=== PATIENT | male | born 1940 | race Caucasian/White ===

== ENCOUNTER 2018-08-23 15:13 | Observation (INO) | payer OTHER ==
[2018-08-23] MEDS ORDERED: TETANUS & DIPHTHERIA TOX,ADULT 0.5 ML VIAL ONE (16:26)
--- NOTE | 2018-08-23 17:56 | RAD REPORT ---
EXAM DESCRIPTION: RAD - Elbow Left 3 View - 08/23/2018 5:17 pm CLINICAL HISTORY: Fall, elbow pain COMPARISON: None. FINDINGS: No fracture is identified and no elevated posterior fat pad. There is no dislocation or pe riosteal reaction noted. Degenerative changes are present at the elbow joint. Tendon calcifications are present at the medial epicondyle. IMPRESSION: Degenerative change without fracture confirmed at the left elbow joint. Repeat imaging in 7 days can be performed if the patient remains symptomatic for fracture.
--- NOTE | 2018-08-23 17:57 | RAD REPORT ---
EXAM DESCRIPTION: RAD - Shoulder Left 2 View - 08/23/2018 5:17 pm CLINICAL HISTORY: Fall, shoulder pain COMPARISON: None. TECHNIQUE: Internal and external rotation views of the left shoulder were obtained. FINDINGS: There is no fracture or dislocation. AC joint degenerative changes are present. No AC join t separation. Acromial humeral joint space is normal range. No pathologic bone process. No significan t soft tissue finding. IMPRESSION: Negative two-view left shoulder examination for fracture or acute finding.
--- NOTE | 2018-08-23 17:59 | RAD REPORT ---
EXAM DESCRIPTION: RAD - Ribs Left - 08/23/2018 5:17 pm CLINICAL HISTORY: Fall, rib pain COMPARISON: None. FINDINGS: No displaced rib fractures are present. Nondisplaced eighth and ninth rib fractures are id entifiable. There is questionable fracture of the seventh rib as well. No aggressive rib lesion. No u nderlying pneumothorax, effusion, infiltrate or pulmonary contusion. IMPRESSION: Nondisplaced fractures of the left eighth and ninth ribs with questionable seventh rib f racture.
--- NOTE | 2018-08-23 18:00 | RAD REPORT ---
EXAM DESCRIPTION: RAD - Chest Single View - 08/23/2018 5:17 pm CLINICAL HISTORY: Fall, chest pain COMPARISON: September 2010 TECHNIQUE: AP portable chest image was obtained 1710 hours . Exam is incorrectly labeled regarding r ight versus left side. FINDINGS: Lungs are mildly fibrotic similar to comparison. No acute lung parenchymal process. Heart and vasculature are normal. No measurable pleural effusion and no pneumothorax. No acute bony abnorma lity seen. No acute aortic findings suspected. IMPRESSION: No acute cardiopulmonary process.
[2018-08-23 19:09] LABS: Absolute Lymphocytes (CBC) 1.4 K/uL (0.7-4.9); Absolute Monocytes 1.2 K/uL (0.1-1.3); Absolute Neutrophil 7.9 K/uL (1.8-8.0); Basophils % 0.2 % (0-1.3); Eosinophils % 0.4 % (0-4.4); Hematocrit 40.7 % (39.6-49.0); MPV 8.9 fL (7.6-11.3); Monocytes % 11.1 % (3.3-12.3); RBC Red Blood Cell Count 4.36 M/uL (4.33-5.43)
[2018-08-23 19:44] LABS: ALT/SGPT 18 U/L (12-78); AST/SGOT 13 U/L (15-37); Albumin 3.5 g/dL (3.4-5.0); Alkaline Phosphatase 69 U/L (45-117); BUN Blood Urea Nitrogen 19 mg/dL (7-18); Bicarbonate 29 mmol/L (21-32); Bilirubin Direct 0.1 mg/dL (0-0.2); Bilirubin Total 0.3 mg/dL (0.2-1.0); Glucose Level 142 mg/dL (74-106); NT PRO-BNP 183 pg/mL (<450); Potassium 4.3 mmol/L (3.5-5.1); Protein, Total 6.5 g/dL (6.4-8.2); Sodium Level 141 mmol/L (136-145); Troponin (Emerg Dept Use Only) < 0.02 ng/mL (0.0-0.045)
[2018-08-23 19:50] LABS: Magnesium 1.2 mg/dL (1.8-2.4)
[2018-08-23] MEDS ORDERED: Magnesium Sulfate 2gm IVPB 2 G/50 ML BAG IV ONE (20:17)
--- NOTE | 2018-08-23 20:29 | ER ---
Nurse's Notes [facility] Name: Demario Johnston Jr Age: 77 yrs Sex: Male : 1940 Arrival Date: 08/23/2018 Time: 15:13 Bed 19 Private MD: Suraj Waldron E Diagnosis: Multiple fractures of ribs, left side;Syncope and collapse Presentation: 08/23 15:44 Presenting complaint: Patient states: I was walking this morning on sidewalk, around 10 sg or 1030 am, reports a dog came out from between two houses, lost my balance and feel from standing, skin tear noted to back of left hand, left elbow, pt reports pain in left forearm and left elbow, left ribs and left shoulder, denies LOC, denies hitting head, believes his tetanus to be out of date. Care prior to arrival: None. Mechanism of Injury: Fall from standing position. Trauma event details: Injury occurred in the [facility], Injury occurred: at home. Injury occurred: August 23, 2018 Injury occurred at: 10:00. 15:44 Acuity: JADA 4 sg 15:44 Method Of Arrival: Ambulatory sg 16:30 Transition of care: patient was not received from another setting of care. Onset of em symptoms was August 23, 2018. Risk Assessment: Do you want to hurt yourself or someone else? Patient reports no desire to harm self or others. Initial Sepsis Screen: Does the patient meet any 2 criteria? No. Patient's initial sepsis screen is negative. Does the patient have a suspected source of infection? No. Patient's initial sepsis screen is negative. Trauma Activation: Not Applicable Physician: ED Physician; Name: ; Notified At: ; Arrived At: Physician: General Surgeon; Name: ; Notified At: ; Arrived At: Physician: Radiology; Name: ; Notified At: ; Arrived At: Physician: Respiratory; Name: ; Notified At: ; Arrived At: Physician: Lab; Name: ; Notified At: ; Arrived At: Historical: - Allergies: 15:47 Sulfa (Sulfonamide Antibiotics); sg - PMHx: 15:47 Diabetes - NIDDM; sg - PSHx: 15:47 Hernia repair; Appendectomy; sg - Immunization history: Last tetanus immunization: > 10 years ago. - Social history:: Smoking status: Patient/guardian denies using tobacco. - Ebola Screening: : Patient negative for fever greater than or equal to 101.5 degrees Fahrenheit, and additional compatible Ebola Virus Disease symptoms Patient denies exposure to infectious person Patient denies travel to an Ebola-affected area in the 21 days before illness onset No symptoms or risks identified at this time. Screenin:30 Abuse screen: Denies threats or abuse. Nutritional screening: No deficits noted. em Tuberculosis screening: No symptoms or risk factors identified. Fall Risk None identified. Primary Survey: 15:44 NO uncontrolled hemorrhage observed. A: The patient is alert. Airway: patent, No sg supplemental oxygen in use on arrival. Oral cavity: clear, Trachea midline. Breathing/Chest: Respiratory pattern: regular, Respiratory effort: spontaneous, unlabored, Breath sounds: clear, Chest inspection: symmetrical rise and fall of the chest. Circulation: Heart tones present. Pulses: palpable right radial artery, right posterior tibial artery, left radial artery and left posterior tibial artery. Skin color: pink, Skin temperature: warm, dry, unable to assess the brachial pulses of the left arm due to pt reports discomfort. Disability Alert. Exposure/Environment: There is no evidence of uncontrolled external bleeding. A warming method has been applied: A warm blanket has been provided to the patient. 16:00 Reassessment Airway Airway Breathing/Chest Respiratory pattern Regular Respiratory sg effort Spontaneous Unlabored Breath sounds Clear Chest inspection Symmetrical Circulation Heart tones Present Pulses Palpable Color [place] Temperature Warm Disability Alert. 17:00 Reassessment Airway Airway Patent Breathing/Chest Respiratory pattern Regular hb Respiratory effort Spontaneous Chest inspection Symmetrical Circulation Color [place] Temperature Warm Dry Disability Alert. 18:00 Reassessment Airway Airway Patent Breathing/Chest Respiratory pattern Regular hb Respiratory effort Spontaneous Unlabored Chest inspection Symmetrical Circulation Color [place] Temperature Warm Dry Disability Alert. 19:00 Reassessment Airway Airway Patent Breathing/Chest Respiratory pattern Regular hb Respiratory effort Spontaneous Unlabored Chest inspection Symmetrical Circulation Color [place] Temperature Warm Dry Disability Alert. Secondary Survey: 15:44 HEENT: No deficits noted. Gastrointestinal: Abdomen is soft, non-distended, obese, sg Bowel sounds present in all quadrants. Palpation No deficit noted. : No signs and/or symptoms were reported regarding the genitourinary system. Musculoskeletal: Circulation, motion, and sensation intact. Range of motion: intact in all extremities, Swelling absent Reports pain in left lateral anterior chest, left hand and left arm. Injury Description: Skin tears sustained to dorsum of left hand and palmar aspect of left forearm. Assessment: 16:30 General: Appears in no apparent distress. comfortable, Behavior is calm, cooperative. em Pain: Complains of pain in anterior aspect of left shoulder, left elbow and left hand, left side of ribs Pain currently is 7 out of 10 on a pain scale. Pain began 1000 today. Neuro: Level of Consciousness is awake, alert, obeys commands, Oriented to person, place, time, situation. Cardiovascular: Capillary refill < 3 seconds Patient's skin is warm and dry. Respiratory: Airway is patent Respiratory effort is even, unlabored, Respiratory pattern is regular, symmetrical. GI: Abdomen is flat. Derm: Skin has skin tears on on top of the left hand and left elbow. Musculoskeletal: Range of motion: intact in left shoulder and left elbow. 16:45 Reassessment: I agree with previous assessment. 17:30 Reassessment: Patient appears in no apparent distress at this time. Patient and/or em family updated on plan of care and expected duration. Pain level reassessed. Patient is alert, oriented x 3, equal unlabored respirations, skin warm/dry/pink. 17:48 Reassessment: radiology staff reports patient became dizzy, diaphoretic and became pale em while standing and doing x-rays, reports they were manipulating patients arms when it occurred, pt was assisted back into the stretcher and reports feeling better, VS rechecked when patient returned to room, reports feeling better, VSS, provider notified. 18:54 Reassessment: Patient appears in no apparent distress at this time. Patient and/or em family updated on plan of care and expected duration. Pain level reassessed. Patient is alert, oriented x 3, equal unlabored respirations, skin warm/dry/pink. Patient states feeling better. Patient states symptoms have improved. 19:00 General: Appears in no apparent distress. comfortable, Behavior is calm, cooperative, rr5 appropriate for age. 19:00 Pain: Complains of pain in left lateral anterior chest Pain does not radiate. Pain rr5 currently is 0 out of 10 on a pain scale. Quality of pain is described as aching, Pain began gradually, Is intermittent. Neuro: Level of Consciousness is awake, alert, obeys commands, Oriented to person, place, time, situation. Cardiovascular: Capillary refill < 3 seconds Patient's skin is warm and dry. Respiratory: Airway is patent Respiratory effort is even, unlabored, Respiratory pattern is regular, symmetrical. GI: Abdomen is flat. : No signs and/or symptoms were reported regarding the genitourinary system. EENT: No signs and/or symptoms were reported regarding the EENT system. Derm: Wound noted left hand and dorsal aspect of left forearm. Musculoskeletal: Capillary refill < 3 seconds. 19:30 Reassessment: Patient appears in no apparent distress at this time. No changes from rr5 previously documented assessment. Patient is alert, oriented x 3, equal unlabored respirations, skin warm/dry/pink. 20:30 Reassessment: Patient appears in no apparent distress at this time. Patient is alert, rr5 oriented x 3, equal unlabored respirations, skin warm/dry/pink. awaiting for the admission. Patient denies pain at this time. 21:20 Reassessment: Patient appears in no apparent distress at this time. Patient is alert, rr5 oriented x 3, equal unlabored respirations, skin warm/dry/pink. no complaints made awaiting for admissionorders Patient states symptoms have improved. 22:25 Reassessment: Patient appears in no apparent distress at this time. Patient and/or rr5 family updated on plan of care and expected duration. Pain level reassessed. Patient is alert, oriented x 3, equal unlabored respirations, skin warm/dry/pink. complaint of left elbow pain. ED provider informed with order made and carried out. Patient states feeling better. Patient states symptoms have improved. 22:48 Reassessment: Patient appears in no apparent distress at this time. Patient is alert, rr5 oriented x 3, equal unlabored respirations, skin warm/dry/pink. transfer to Room 407 Patient states feeling better. Patient states symptoms have improved. Vital Signs: 15:47 BP 130 / 77; Pulse 67; Resp 19; Temp 97.7; Pulse Ox 98% on R/A; Weight 99.79 kg; Height sg 5 ft. 11 in. (180.34 cm); Pain 7/10; 16:30 BP 117 / 77; Pulse 89; Resp 16; Pulse Ox 97% on R/A; em 17:30 BP 108 / 67; Pulse 81; Resp 16; Pulse Ox 99% on R/A; em 18:30 BP 128 / 65; Pulse 81; Resp 16; Pulse Ox 98% on R/A; em 19:00 BP 124 / 69; Pulse 98; Resp 17; Temp 98; Pulse Ox 99% ; rr5 20:00 BP 118 / 65; Pulse 90; Resp 16; Pulse Ox 99% ; rr5 21:00 BP 134 / 64; Pulse 91; Resp 17; Pulse Ox 98% ; rr5 21:30 BP 135 / 66; Pulse 91; Resp 17; Pulse Ox 99% ; rr5 22:30 BP 120 / 63; Pulse 89; Resp 16; Temp 98; Pulse Ox 99% ; rr5 15:47 Body Mass Index 30.68 (99.79 kg, 180.34 cm) sg Greg Coma Score: 15:47 Eye Response: spontaneous(4). Verbal Response: oriented(5). Motor Response: obeys sg commands(6). Total: 15. Trauma Score (Adult): 15:47 Eye Response: spontaneous(1); Verbal Response: oriented(1); Motor Response: obeys sg commands(2); Systolic BP: > 89 mm Hg(4); Respiratory Rate: 10 to 29 per min(4); [place] Score: 15; Trauma Score: 12 16:30 Eye Response: spontaneous(1); Verbal Response: oriented(1); Motor Response: obeys hb commands(2); Systolic BP: > 89 mm Hg(4); Respiratory Rate: 10 to 29 per min(4); Greg Score: 15; Trauma Score: 12 17:30 Eye Response: spontaneous(1); Verbal Response: oriented(1); Motor Response: obeys hb commands(2); Systolic BP: > 89 mm Hg(4); Respiratory Rate: 10 to 29 per min(4); Greg Score: 15; Trauma Score: 12 18:30 Eye Response: spontaneous(1); Verbal Response: oriented(1); Motor Response: obeys hb commands(2); Systolic BP: > 89 mm Hg(4); Respiratory Rate: 10 to 29 per min(4); Greg Score: 15; Trauma Score: 12 ED Course: 15:13 Patient arrived in ED. as 15:14 Suraj Waldron MD is Private Physician. as 15:44 [facility] 15:45 Donny Albarran MD is Attending Physician. jmm 15:47 Triage completed. sg 15:51 Robel Da Silva LVN is Primary Nurse. em 16:20 Wound care: to skin tear located on left elbow and left hand was cleaned with em Hibiclens, dressed with Neosporin, 4X4s, Kerlix, Patient tolerated well. 16:30 Patient has correct armband on for positive identification. Placed in gown. Bed in low em position. Call light in reach. Side rails up X2. Adult w/ patient. Pulse ox on. NIBP on. 16:30 Arm band placed on. em 17:15 Shoulder Left (2 View) XRAY In Process Unspecified. EDMS 17:15 Elbow Left 3 View XRAY In Process Unspecified. EDMS 17:15 Ribs Left XRAY In Process Unspecified. EDMS 17:15 Chest Single View XRAY In Process Unspecified. EDMS 18:41 EKG done, by ED staff, reviewed by Franc BETH. em 18:50 Initial lab(s) drawn, by la, sent to lab. Inserted saline lock: 20 gauge in right em forearm, using aseptic technique. Blood collected. 19:00 Patient maintains SpO2 saturation greater than 95% on room air. rr5 19:00 Thermoregulation: warm blanket given to patient. rr5 19:49 Notified Nurse Practitioner and/or Physician Complaint Analyst of a critical lab result(s), mg fc of 1.2. 20:28 Caroline Li MD is Hospitalizing Provider. [facility] 22:34 No provider procedures requiring assistance completed. Patient admitted, IV remains in rr5 place. intact, No redness/swelling at site. Administered Medications: 16:32 Drug: Tetanus-Diphtheria Toxoid Adult 0.5 ml {[employer]: [employer]. Exp: em 08/16/2020. Lot #: [id number]. } Route: IM; Site: right deltoid; 18:28 Follow up: Response: No adverse reaction em 20:15 Drug: Magnesium Sulfate 2 grams Route: IVPB; Infused Over: 2 hrs; Site: right forearm; rr5 22:15 Follow up: Response: No adverse reaction; IV Status: Completed infusion; IV Intake: [id number] 22:28 Drug: Zofran 4 mg Route: IVP; Site: right forearm; rr5 22:49 Follow up: Response: No adverse reaction rr5 22:30 Drug: morphine 4 mg Route: IVP; Site: right forearm; rr5 22:50 Follow up: Response: No adverse reaction rr5 Intake: 15:47 PO: 0ml; Total: 0ml. sg 22:15 IV: 50ml; Total: 50ml. rr5 Outcome: 20:28 Decision to Hospitalize by Provider. [facility] 22:00 Patient's length of stay in the Emergency Department was greater than 2 hours. awaiting rr5 for inpatient ordersPatient's length of stay extended due to 22:34 Admitted to Tele accompanied by raciel, room 407, with chart, Report called to zahra rr5 22:34 Condition: stable 22:34 Instructed on the need for admit. 22:51 Patient left the ED. rr5 Signatures: Dispatcher [employer] Cale Gates, RN RN sg Franc Cruz PA PA jmm Chretien, Felicia, RN RN Robel Da Silva, MANAGER EPIC MANAGER EPIC em Va Lujan as Tiara Braga RN RN Bill Kraus, RN RN rr5 Corrections: (The following items were deleted from the chart) 19:27 16:30 Pain: Complains of pain in anterior aspect of left shoulder, left elbow and left em hand Pain currently is 7 out of 10 on a pain scale. Pain began 1000 today em
--- NOTE | 2018-08-23 20:29 | EDPHYS ---
Physician Documentation [facility] Name: Demario Johnston Jr Age: 77 yrs Sex: Male : 1940 Arrival Date: 08/23/2018 Time: 15:13 Bed 19 Private MD: Suraj Waldron E ED Physician Donny Albarran HPI: 08/23 16:16 This 77 yrs old Male presents to ER via Ambulatory with complaints of Fall jmm Injury. 16:16 Details of fall: The patient fell from an upright position. Onset: The symptoms/episode jmm began/occurred acutely, 4 hour(s) ago. Associated injuries: The patient sustained shoulder, elbow, chest. This is a 77 year old male with a history of DM, that presents to the ED with left sided rib pain pain, left elbow and left shoulder pain which occurred after a fall while walking. Patient states he tripped when attempting to step on an uneven street. Patient denies head injury, . Historical: - Allergies: 15:47 Sulfa (Sulfonamide Antibiotics); sg - PMHx: 15:47 Diabetes - NIDDM; sg - PSHx: 15:47 Hernia repair; Appendectomy; sg - Immunization history: Last tetanus immunization: > 10 years ago. - Social history:: Smoking status: Patient/guardian denies using tobacco. - Ebola Screening: : Patient negative for fever greater than or equal to 101.5 degrees Fahrenheit, and additional compatible Ebola Virus Disease symptoms Patient denies exposure to infectious person Patient denies travel to an Ebola-affected area in the 21 days before illness onset No symptoms or risks identified at this time. ROS: 16:16 Constitutional: Negative for fever, chills, and weight loss, Cardiovascular: Negative jmm for chest pain, palpitations, and edema, Respiratory: Negative for shortness of breath, cough, wheezing, and pleuritic chest pain. 16:16 MS/extremity: Positive for injury or acute deformity, abrasion, pain. 16:16 Skin: Positive for avulsion. 16:16 All other systems are negative. Exam: 16:16 Head/Face: atraumatic. Eyes: EOMI, no conjunctival erythema appreciated ENT: Moist jmm Mucus Membranes Neck: Trachea midline, Supple Chest/axilla: Normal chest wall appearance and motion. Cardiovascular: Regular rate and rhythm. No edema appreciated Respiratory: Normal respirations, no respiratory distress appreciated Abdomen/GI: Non distended, soft 16:16 Constitutional: The patient appears in no acute distress, alert, awake. 16:16 Chest/axilla: left anterolateral rib pain on palpation, no step offs appreciated. 16:16 Respiratory: the patient does not display signs of respiratory distress, Respirations: normal, Breath sounds: are clear throughout. 16:16 Musculoskeletal/extremity: bony tenderness noted to the left olecranon, left anterior shoulder, FROM is appreciated, to the wrist , elbow, and shoulder joint, full radial pulse, compartments are soft. NVI. 16:16 Skin: skin tear noted to the left wrist. 16:16 Neuro: Orientation: is normal, Mentation: is normal, Memory: is normal. 16:16 Psych: Behavior/mood is pleasant, cooperative. Vital Signs: 15:47 BP 130 / 77; Pulse 67; Resp 19; Temp 97.7; Pulse Ox 98% on R/A; Weight 99.79 kg; Height sg 5 ft. 11 in. (180.34 cm); Pain 7/10; 16:30 BP 117 / 77; Pulse 89; Resp 16; Pulse Ox 97% on R/A; em 17:30 BP 108 / 67; Pulse 81; Resp 16; Pulse Ox 99% on R/A; em 18:30 BP 128 / 65; Pulse 81; Resp 16; Pulse Ox 98% on R/A; em 19:00 BP 124 / 69; Pulse 98; Resp 17; Temp 98; Pulse Ox 99% ; rr5 20:00 BP 118 / 65; Pulse 90; Resp 16; Pulse Ox 99% ; rr5 21:00 BP 134 / 64; Pulse 91; Resp 17; Pulse Ox 98% ; rr5 21:30 BP 135 / 66; Pulse 91; Resp 17; Pulse Ox 99% ; rr5 22:30 BP 120 / 63; Pulse 89; Resp 16; Temp 98; Pulse Ox 99% ; rr5 15:47 Body Mass Index 30.68 (99.79 kg, 180.34 cm) sg Branch Coma Score: 15:47 Eye Response: spontaneous(4). Verbal Response: oriented(5). Motor Response: obeys sg commands(6). Total: 15. Trauma Score (Adult): 15:47 Eye Response: spontaneous(1); Verbal Response: oriented(1); Motor Response: obeys sg commands(2); Systolic BP: > 89 mm Hg(4); Respiratory Rate: 10 to 29 per min(4); Greg Score: 15; Trauma Score: 12 16:30 Eye Response: spontaneous(1); Verbal Response: oriented(1); Motor Response: obeys hb commands(2); Systolic BP: > 89 mm Hg(4); Respiratory Rate: 10 to 29 per min(4); Greg Score: 15; Trauma Score: 12 17:30 Eye Response: spontaneous(1); Verbal Response: oriented(1); Motor Response: obeys hb commands(2); Systolic BP: > 89 mm Hg(4); Respiratory Rate: 10 to 29 per min(4); Greg Score: 15; Trauma Score: 12 18:30 Eye Response: spontaneous(1); Verbal Response: oriented(1); Motor Response: obeys hb commands(2); Systolic BP: > 89 mm Hg(4); Respiratory Rate: 10 to 29 per min(4); Greg Score: 15; Trauma Score: 12 MDM: 16:07 Patient medically screened. [facility] 20:27 Data reviewed: vital signs, nurses notes. Counseling: I had a detailed discussion with [facility] the patient and/or guardian regarding: the historical points, exam findings, and any diagnostic results supporting the discharge/admit diagnosis, lab results, radiology results, the need for further work-up and treatment in the hospital. ED course: I discussed the patient with Dr. Schneider whom accepted admission. . 08/23 18:15 Order name: Basic Metabolic Panel; Complete Time: 19:51 [facility] 08/23 18:15 Order name: CBC with Diff; Complete Time: 19:29 [facility] 08/23 18:15 Order name: LFT's; Complete Time: 19:51 [facility] 08/23 18:15 Order name: Magnesium; Complete Time: :51 [facility] 08/23 18:15 Order name: NT PRO-BNP; Complete Time: 19:51 [facility] 08/23 18:15 Order name: PT-INR; Complete Time: 19:29 [facility] 08/23 16:12 Order name: Shoulder Left (2 View) XRAY; Complete Time: 18:11 [facility] 08/23 16:12 Order name: Elbow Left 3 View XRAY; Complete Time: 18:11 [facility] 08/23 16:12 Order name: Ribs Left XRAY; Complete Time: 18:11 [facility] 08/23 16:12 Order name: Chest Single View XRAY; Complete Time: 18:11 [facility] 08/23 18:15 Order name: Troponin (emerg Dept Use Only); Complete Time: 19:51 [facility] 08/23 18:15 Order name: EKG; Complete Time: 18:16 [facility] 08/23 18:15 Order name: Cardiac monitoring; Complete Time: 18:28 [facility] 08/23 18:15 Order name: EKG - Nurse/Tech; Complete Time: 18:28 [facility] 08/23 18:15 Order name: IV Saline Lock; Complete Time: 18:28 [facility] 08/23 18:15 Order name: Labs collected and sent; Complete Time: 18:28 [facility] 08/23 18:15 Order name: O2 Per Protocol; Complete Time: 18:28 [facility] 08/23 18:15 Order name: O2 Sat Monitoring; Complete Time: 18:28 [facility] Administered Medications: 16:32 Drug: Tetanus-Diphtheria Toxoid Adult 0.5 ml {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 Exp: em 08/16/2020. Lot #: [id number]. } Route: IM; Site: right deltoid; 18:28 Follow up: Response: No adverse reaction em 20:15 Drug: Magnesium Sulfate 2 grams Route: IVPB; Infused Over: 2 hrs; Site: right forearm; rr5 22:15 Follow up: Response: No adverse reaction; IV Status: Completed infusion; IV Intake: [id number] 22:28 Drug: Zofran 4 mg Route: IVP; Site: right forearm; rr5 22:49 Follow up: Response: No adverse reaction rr5 22:30 Drug: morphine 4 mg Route: IVP; Site: right forearm; rr5 22:50 Follow up: Response: No adverse reaction rr5 Disposition: 08/24 07:08 Co-signature as Attending Physician, Donny Albarran MD. rn Disposition: 08/23/18 20:28 Hospitalization ordered by Caroline Li for Observation. Preliminary diagnosis are Multiple fractures of ribs, left side, Syncope and collapse. - Bed requested for Telemetry/MedSurg (observation). - Status is Observation. rr5 - Condition is Stable. - Problem is new. - Symptoms have improved. UTI on Admission? No Signatures: Dispatcher [employer] EDShweta Grider RN RN Cale Smith RN RN sg Mickail, Joel, PA PA jmm Munoz, Edgar, HARPSICHORD MAKER HARPSICHORD MAKER em Donny Albarran MD MD rn Roque, Raymond, RN RN rr5 Corrections: (The following items were deleted from the chart) 08/23 20:55 20:28 Hospitalization Ordered by Caroline Li MD for Observation. Preliminary diagnosis is Multiple fractures of ribs, left side; Syncope and collapse. Bed requested for Telemetry/MedSurg (observation). Status is Observation. Condition is Stable. Problem is new. Symptoms have improved. UTI on Admission? No. [facility] 22:51 20:55 08/23/2018 20:28 Hospitalization Ordered by Caroline Li MD for Observation. rr5 Preliminary diagnosis is Multiple fractures of ribs, left side; Syncope and collapse. Bed requested for Telemetry/MedSurg (observation). Status is Observation. Condition is Stable. Problem is new. Symptoms have improved. UTI on Admission? No. kl
--- NOTE | 2018-08-23 22:14 | P.HP ---
Certification for Inpatient Patient admitted to: Observation With expected LOS: <2 Midnights Practitioner: I am a practitioner with admitting privileges, knowledge of patient current condition, hospital course, and medical plan of care. Services: Services provided to patient in accordance with Admission requirements found in Title 42 Section 412.3 of the Code of Federal Regulations Patient History Date of Service: 08/23/18 Reason for admission: multiple rib fractures History of Present Illness: Mr Johnston is a 77 years old male with history of diabetes mellitus II, who went for his usual waling today, when suddenly saw a dog running to him, loss his balance, and fell to the ground. Subsequently, he start having severe left chest wall and left arm pain. The patient denied any dizziness or palpitations prior the fall. Once he was in the hospital, the patient become dizzy after he stand up from the chair to have a CXR. He had nausea and become diaphoretic. The episode resolved quickly. CXR was remarkable for left 7th, 8th and possible 9th rib fracture. Allergies Sulfa (Sulfonamide Antibiotics) Allergy (Verified 11/23/14 07:57) Rash Home medications list reviewed: Yes Home Medications: Glimepiride [Amaryl] 4 mg PO DAILY 11/23/14 Metformin HCl [Glucophage] 1,000 mg PO TID 11/23/14 Ramipril [Altace] 5 mg PO DAILY 11/23/14 - Past Medical/Surgical History -: Diabetes mellitus II -: hernia repair -: appendectomy - Family History Family History: Reviewed- Non-Contributory - Social History Smoking Status: Former smoker Alcohol use: Yes CD- Drugs: No Place of Residence: Home Review of Systems 10-point ROS is otherwise unremarkable Physical Examination - Physical Exam General: Alert, In no apparent distress HEENT: Atraumatic, PERRLA, Mucous membr. moist/pink, EOMI, Sclerae nonicteric Neck: Supple, 2+ carotid pulse no bruit, No LAD, Without JVD or thyroid abnormality Respiratory: Clear to auscultation bilaterally, Normal air movement Cardiovascular: Regular rate/rhythm, Normal S1 S2 Gastrointestinal: Normal bowel sounds, No tenderness Musculoskeletal: Tenderness (left chest wall and left arm to movement or palpation.) Integumentary: No rashes Neurological: Normal gait, Normal speech, Normal strength at 5/5 x4 extr, Normal tone, Normal affect Lymphatics: No axilla or inguinal lymphadenopathy - Studies Laboratory Data (last 24 hrs) 08/23/18 18:50: PT 11.8, INR 1.00 08/23/18 18:50: WBC 10.4, Hgb 13.8, Hct 40.7, Plt Count 167 08/23/18 18:50: Sodium 141, Potassium 4.3, BUN 19 H, Creatinine 1.05, Glucose 142 H, Magnesium 1.2 L*, Total Bilirubin 0.3, AST 13 L, ALT 18, Alkaline Phosphatase 69 Assessment and Plan - Problems (Diagnosis) (1) Ribs, multiple fractures Current Visit: Yes Status: Acute Qualifiers: Encounter type: initial encounter Fracture type: closed Laterality: left Qualified Code(s): S22.42XA - Multiple fractures of ribs, left side, initial encounter for closed fracture (2) Diabetes mellitus Current Visit: Yes Status: Acute Qualifiers: Diabetes mellitus type: type 2 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 The near syncopal episode seem to be secondary to a vaso-vagal reaction. Will check for orthostatic hypotension. Consult physical therapy. - Advance Directives Does patient have a Living Will: No Does patient have a Durable POA for Healthcare: No - Code Status/Comfort Care Code Status Assessed: Yes Code Status: Full Code
[2018-08-23] MEDS ORDERED: ONDANSETRON 4 MG/2 ML VIAL ONE (22:35)
[2018-08-23] MEDS ORDERED: MORPHINE 4 MG/ML SYR ONE (22:35)
[2018-08-23] MEDS ORDERED: TRAMADOL HCL 50 MG TAB PO PRN (23:13)
[2018-08-23] MEDS ORDERED: GLUCAGON 1 MG/VIAL IM PRN (23:13)
[2018-08-23] MEDS ORDERED: KETOROLAC 30 MG/ML INJ IV PRN (23:13)
[2018-08-23] MEDS ORDERED: D50W 25 GM/50 ML SYRINGE IV PRN (23:13)
[2018-08-23] MEDS ORDERED: ONDANSETRON 4 MG/2 ML VIAL IV PRN (23:13)
[2018-08-23] MEDS ORDERED: ACETAMINOPHEN 500 MG TAB PO PRN (23:13)
[2018-08-23 23:14] VITALS: BMI 21.8
[2018-08-23] MEDS: NA CHLORIDE 0.9% 1,000 ML IV SCH (23:49)
[2018-08-24] MEDS ORDERED: MAGNESIUM SULFATE 1 gm IVPB 1 GM/100 ML BAG IV ONE (03:24)
[2018-08-24 06:54] LABS: Absolute Lymphocytes (CBC) 1.2 K/uL (0.7-4.9); Absolute Neutrophil 6.9 K/uL (1.8-8.0); Basophils % 0.2 % (0-1.3); Eosinophils % 0.2 % (0-4.4); Hematocrit 40.5 % (39.6-49.0); Lymphocytes % 13.5 % (15.3-44.8); Monocytes % 10.8 % (3.3-12.3); RBC Red Blood Cell Count 4.35 M/uL (4.33-5.43)
[2018-08-24 07:05] LABS: Urine Appearance CLEAR; Urine Bilirubin NEGATIVE (NEG); Urine Blood NEGATIVE (NEG); Urine Color YELLOW; Urine Glucose 1+ (NEG); Urine Protein NEGATIVE (NEG); Urine Specific Gravity 1.015 (1.005-1.030); Urine Urobilinogen 0.2 mg/dL (0.2-1.0); Urine pH 5.5 (5.0-7.0)
--- NOTE | 2018-08-24 07:06 | EKG ---
Test Date: 2018-08-23 Test Time: 18:41:31 Asparagus Buncher: MURRAY MEASUREMENT RESULTS: Intervals: Rate: 88 NE: 174 QRSD: 74 QT: 368 QTc: 445 Flora: P: 53 NE: 174 QRS: 8 T: 52 INTERPRETIVE STATEMENTS: Sinus rhythm with occasional premature ventricular complexes Otherwise normal ECG Compared to ECG 05/28/2006 08:21:28 Ventricular premature complex(es) now present Electronically Signed On 08-24-18 07:04:40 SAFETY AIDE by Gigi Medina
[2018-08-24 07:10] LABS: Potassium 4.6 mmol/L (3.5-5.1)
[2018-08-24] MEDS ORDERED: INSULIN -REGULAR HUMAN 50 UNIT/0.5 ML ML SQ SCH (07:30)
[2018-08-24 08:15] LABS: Urine Microscopic Reflex NO UMIC
[2018-08-24 08:17] VITALS: O2SAT 97
[2018-08-24] MEDS: NA CHLORIDE 0.9% 1,000 ML IV SCH (08:19)
[2018-08-24] MEDS ORDERED: ENOXAPARIN 40 MG/0.4 ML SQ SCH (09:00)
[2018-08-24] MEDS ORDERED: RAMIPRIL 5 MG CAP PO SCH (09:00)
--- NOTE | 2018-08-24 10:37 | P.DS ---
Admission Date: 08/23/18 Discharge Date: 08/24/18 Primary Care Provider: Dr. Waldron Disposition: ROUTINE DISCHARGE Discharge Condition: GOOD Reason for Admission: multiple rib fractures Consultations: none Procedures: Xray elbows: COMPARISON: None. FINDINGS: No fracture is identified and no elevated posterior fat pad. There is no dislocation or periosteal reaction noted. Degenerative changes are present at the elbow joint. Tendon calcifications are present at the medial epicondyle. IMPRESSION: Degenerative change without fracture confirmed at the left elbow joint. Repeat imaging in 7 days can be performed if the patient remains symptomatic for fracture. Xray ribs: COMPARISON: None. FINDINGS: No displaced rib fractures are present. Nondisplaced eighth and ninth rib fractures are identifiable. There is questionable fracture of the seventh rib as well. No aggressive rib lesion. No underlying pneumothorax, effusion, infiltrate or pulmonary contusion. IMPRESSION: Nondisplaced fractures of the left eighth and ninth ribs with questionable seventh rib fracture. Xray shoulder: COMPARISON: None. TECHNIQUE: Internal and external rotation views of the left shoulder were obtained. FINDINGS: There is no fracture or dislocation. AC joint degenerative changes are present. No AC joint separation. Acromial humeral joint space is normal range. No pathologic bone process. No significant soft tissue finding. IMPRESSION: Negative two-view left shoulder examination for fracture or acute finding. CXR: COMPARISON: September 2010 TECHNIQUE: AP portable chest image was obtained 1710 hours . Exam is incorrectly labeled regarding right versus left side. FINDINGS: Lungs are mildly fibrotic similar to comparison. No acute lung parenchymal process. Heart and vasculature are normal. No measurable pleural effusion and no pneumothorax. No acute bony abnormality seen. No acute aortic findings suspected. IMPRESSION: No acute cardiopulmonary process. Medical problem list: Fall leading to nondisplaced fractures of the left 7th, 8th and 9th Hypertension Diabetes mellitus type 2 Brief History of Present Illness: 69-year-old male presented to the emergency room after he lost his balance. He fell to the ground on the left side. This was after he saw all dog running to him. Patient denied any headaches, dizziness, chest pain or shortness of breath. Patient was brought in to the emergency room and found to have nondisplaced fractures of the left 7th, 8th and 9th rib. Patient was admitted for pain control. Hospital Course: Patient presented with a fall after a dog was running towards him. He denied any chest pain, shortness of breath or dizziness. Patient found to have left nondisplaced rib fractures to the 7th, 8th and 9th rib. Patient was admitted for pain control. Patient did well in his stay. Patient provided fall precautions and instructions. At discharge patient will follow up with his PCP within 1 week. Patient will be provided tramadol 50 mg 1 pill 3 times a day as needed for pain along with ibuprofen 400 mg 1 pill twice daily as needed for pain. Patient may follow up with his PCP. Patient may ask for physical therapy as an outpatient to further address. Patient has hypertension. Patient will continue with his medication of Altace 5 mg daily. Recommend to maintain blood pressures less than 150/80. Further adjustment can be done by his PCP. Patient has diabetes mellitus type 2. Patient will continue with his medication of Amaryl 4 mg daily and metformin 1000 mg 1 pill twice daily. Recommend to maintain blood sugars less 140 fasting and less than 200 after meals. Further adjustment can be done by his PCP. Vital Signs/Physical Exam: Temp Pulse Resp BP Pulse Ox 97.3 F 93 H 18 135/71 97 08/24/18 08:00 08/24/18 08:07 08/24/18 08:00 08/24/18 08:07 08/24/18 08:00 General: Alert, In no apparent distress, Oriented x3, Cooperative HEENT: Atraumatic Neck: Supple Respiratory: Clear to auscultation bilaterally, Normal air movement Cardiovascular: Normal pulses, Regular rate/rhythm Gastrointestinal: Normal bowel sounds, Soft and benign, Non-distended, No masses , No rebound, No guarding Musculoskeletal: Other (Mild pain to the left chest wall.) Neurological: Normal speech, Normal strength at 5/5 x4 extr, Normal tone, Normal affect Laboratory Data at Discharge: WBC 9.2 K/uL (4.3-10.9) 08/24/18 06:07 Hgb 13.7 g/dL (13.6-17.9) 08/24/18 06:07 Hct 40.5 % (39.6-49.0) 08/24/18 06:07 Plt Count 158 K/uL (152-406) 08/24/18 06:07 PT 11.8 SECONDS (9.5-12.5) 08/23/18 18:50 INR 1.00 08/23/18 18:50 Sodium 139 mmol/L (136-145) 08/24/18 06:07 Potassium 4.6 mmol/L (3.5-5.1) 08/24/18 06:07 BUN 19 mg/dL (7-18) H 08/24/18 06:07 Creatinine 1.12 mg/dL (0.55-1.3) 08/24/18 06:07 Glucose 249 mg/dL (74-106) H 08/24/18 06:07 Magnesium 1.6 mg/dL (1.8-2.4) L 08/24/18 01:52 Total Bilirubin 0.3 mg/dL (0.2-1.0) 08/23/18 18:50 AST 13 U/L (15-37) L 08/23/18 18:50 ALT 18 U/L (12-78) 08/23/18 18:50 Alkaline Phosphatase 69 U/L (45-117) 08/23/18 18:50 Triglycerides 122 mg/dL (<150) 08/24/18 06:07 Cholesterol 117 mg/dL (<200) 08/24/18 06:07 HDL Cholesterol 39 mg/dL (40-60) L 08/24/18 06:07 Cholesterol/HDL Ratio 3.00 08/24/18 06:07 Home Medications: Glimepiride [Amaryl] 5 mg PO DAILY 11/23/14 Metformin HCl [Glucophage] 1,000 mg PO BID 11/23/14 Ramipril [Altace*] 5 mg PO DAILY 11/23/14 Ibuprofen 400 mg PO BID PRN #15 tablet 08/24/18 traMADol HCL [Ultram*] 50 mg PO TID PRN #15 tab 08/24/18 New Medications: Ibuprofen 400 mg PO BID PRN #15 tablet PRN Reason: Pain traMADol HCL [Ultram*] 50 mg PO TID PRN #15 tab PRN Reason: Pain Patient Discharge Instructions: 1. Patient may follow up with his PCP in 1 week to follow up this hospitalization. 2. Patient presented with a fall after a dog was running towards him. He denied any chest pain, shortness of breath or dizziness. Patient found to have left nondisplaced rib fractures to the 7th, 8th and 9th rib. Patient was admitted for pain control. Patient did well in his stay. Patient provided fall precautions and instructions. At discharge patient will follow up with his PCP within 1 week. Patient will be provided tramadol 50 mg 1 pill 3 times a day as needed for pain along with ibuprofen 400 mg 1 pill twice daily as needed for pain. Patient may follow up with his PCP. Patient may ask for physical therapy as an outpatient to further address. 3. Patient has hypertension. Patient will continue with his medication of Altace 5 mg daily. Recommend to maintain blood pressures less than 150/80. Further adjustment can be done by his PCP. 4. Patient has diabetes mellitus type 2. Patient will continue with his medication of Amaryl 4 mg daily and metformin 1000 mg 1 pill twice daily. Recommend to maintain blood sugars less 140 fasting and less than 200 after meals. Further adjustment can be done by his PCP. Diet: ADA Activity: Fall precautions Time spent managing pt's care (in minutes): 55
[2018-08-24 12:58] VITALS: BP 115/56; TEMP 99.1
== END 2018-08-24 12:05 | disposition home or self-care (01) ==
LOC: ER 15:13 → ERHOLD 20:28 → 4TH 22:39
PROVIDERS: ADMIT Internal Medicine; ATTEND Internal Medicine
DX: S22.42XA Multiple fractures of ribs, left side, initial encounter for closed fracture (principal); I10 Essential (primary) hypertension; E11.9 Type 2 diabetes mellitus without complications; E83.42 Hypomagnesemia; R55 Syncope and collapse; W01.0XXA Fall on same level from slipping, tripping and stumbling without subsequent striking against object, initial encounter; Y92.009 Unspecified place in unspecified non-institutional (private) residence as the place of occurrence of the external cause; Z88.2 Allergy status to sulfonamides; Z87.891 Personal history of nicotine dependence; Z23 Encounter for immunization
CPT/HCPCS: 36415; 71045; 71100; 73030; 73080; 80048 ×2; 80061; 80076; 81003; 82962 ×3; 83735 ×2; 83880; 84484; 85025 ×2; 85610; 90714; 93005; 96365; 96366; 96375; 97162; 99285; G0378 ×2; J1650; J2405; J3475 ×2; J7030 ×2

== ENCOUNTER 2020-06-02 08:15 | Day surgery (SDC) | payer OTHER ==
[2020-06-02 08:40] VITALS: TEMP 96.9
[2020-06-02 08:47] LABS: Absolute Lymphocytes (CBC) 1.2 K/uL (0.7-4.9); Basophils % 0.4 % (0-1.3); Hematocrit 40.4 % (39.6-49.0); Lymphocytes % 18.5 % (15.3-44.8); MPV 8.4 fL (7.6-11.3); RBC Red Blood Cell Count 4.36 M/uL (4.33-5.43)
--- NOTE | 2020-06-02 09:01 | RAD REPORT ---
EXAM DESCRIPTION: Christopher Cordova (2 Views)06/02/2020 8:45 am CLINICAL HISTORY: Preop for finger surgery COMPARISON: 2019 FINDINGS: Lungs appear mildly hyperaerated. The lungs appear clear of acute infiltrate. The heart is normal size IMPRESSION: No acute abnormalities displayed
[2020-06-02] MEDS ORDERED: NA CHLORIDE 0.9% 1,000 ML ONE (09:54)
[2020-06-02] MEDS: CEFAZOLIN/SWI 1gm 1 GM/10 ML SYR ONE ×2 (13:18→14:05)
[2020-06-02] MEDS ORDERED: FENTANYL CITR 100 MCG/2 ML ONE (13:27)
[2020-06-02] MEDS ORDERED: propofoL 200 MG/20 ML VIAL IV ONE (13:27)
[2020-06-02] MEDS ORDERED: LIDOCAINE 2% MPF 5 ML VIAL ONE (13:29)
[2020-06-02] MEDS ORDERED: KETOROLAC 30 MG/ML INJ ONE (13:29)
[2020-06-02] MEDS ORDERED: BUPIVACAINE 0.5% PF 10 ML VIAL ONE (13:50)
[2020-06-02] MEDS ORDERED: CODEINE 30MG/APAP 300MG TAB ONE (15:11)
[2020-06-02 15:26] VITALS: BP 128/64; O2SAT 98
--- NOTE | 2020-06-06 11:10 | OP ---
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 Procedure Performed: Debridement of skin tissue, bone, flap advancement closure. Anesthesia: Digital block. Description Of Procedure: After satisfactory digital block, the patient's left hand was prepped with Betadine scrub and paint. Dry sterile drapes were applied in the usual manner. 6.5 gloves were use d as a digital tourniquet over left middle finger. Hand was placed on the Roto Lock table. Scalpel was used to debride skin and subcutaneous tissue and the nail plate was removed with a 15 blade and the bone was cut with angled. This was corrected, then filed with a file. Wound jet lavag e, irrigated with 1 L of dilute Betadine solution. Then, the flap was undermined, advanced and close d with 4-0 Prolene simple sutures. Dressed with Xeroform, 2 inch Karely. The patient tolerated proce dure well, returned to Recovery. BONNIE/DUARTE Voice ID: [id number] Report ID: [id number]
== END 2020-06-02 15:29 | disposition home or self-care (01) ==
LOC: OR 08:15
PROVIDERS: ATTEND Specialist
PROC: 0X6R0Z3 Detachment at Left Middle Finger, Low, Open Approach (ICD-10-PCS; principal; 2020-06-02 13:00)
DX: S68.613A Complete traumatic transphalangeal amputation of left middle finger, initial encounter (principal); Z20.828 Contact with and (suspected) exposure to other viral communicable diseases
CPT/HCPCS: 93005; 85025; 36415; 82947; 88304; 88311; 71046; 26952; U0002; J2704; J0690; J7030; J3010

== ENCOUNTER 2021-09-13 06:06 | Observation (INO) | payer OTHER ==
[2021-09-13] MEDS ORDERED: MORPHINE 2 MG/ML SYR ONE (06:57)
[2021-09-13] MEDS ORDERED: ONDANSETRON 4 MG/2 ML VIAL ONE (06:57)
[2021-09-13] MEDS ORDERED: FAMOTIDINE 20 MG/2 ML VIAL IV ONE (06:57)
[2021-09-13 07:10] LABS: Absolute Lymphocytes (CBC) 1.4 K/uL (0.7-4.9); Lymphocytes % 13.1 % (15.3-44.8); MPV 8.5 fL (7.6-11.3); RBC Red Blood Cell Count 4.61 M/uL (4.33-5.43)
[2021-09-13 07:31] LABS: Protime INR 0.96
[2021-09-13 08:39] LABS: Bilirubin Total 0.5 mg/dL (0.2-1.0); Potassium 4.1 mmol/L (3.5-5.1)
[2021-09-13 08:40] LABS: Albumin 3.5 g/dL (3.4-5.0); Bilirubin Direct 0.1 mg/dL (0-0.2); Protein, Total 6.9 g/dL (6.4-8.2); Troponin High Sensitivity 7.4 pg/mL (<58.9)
[2021-09-13] MEDS ORDERED: Magnesium Sulfate 2gm IVPB 2 G/50 ML BAG IV ONE (09:02)
--- NOTE | 2021-09-13 09:24 | RAD REPORT ---
EXAM DESCRIPTION: CT - Angio Aorta For Dissection - 09/13/2021 9:03 am CLINICAL HISTORY: . Chest and abd pain COMPARISON: 2016 TECHNIQUE: Computed tomography angiography of the chest, abdomen pelvis were obtained. 100 cc Isovue 370 was administered intravenously. Coronal and sagittal reconstruction were performed. MIP 3D reconstruction was performed All CT scans are performed using dose optimization technique as appropriate and may include automated exposure control or mA/KV adjustment according to patient size. FINDINGS: An aortic dissection is not seen. An aortic aneurysm is not displayed. The celiac, SMA and JOEY are patent . Mild atherosclerotic disease A lung consolidation is not present. A pericardial effusion is not seen. A pleural effusion is not no ariane. A 6 millimeter left lower lobe nodule unchanged likely benign. COPD The liver,spleen, pancreas, adrenalsand kidneys demonstrate no significant abnormality. No evidence of diverticulitis. A small hiatal hernia. Postsurgical changes left inguinal hernia repai r. Probably small current left inguinal hernia. Small right inguinal hernia. Prostate gland moderatel y to markedly enlarged IMPRESSION: Negative for an aortic dissection.
--- NOTE | 2021-09-13 09:36 | RAD REPORT ---
EXAM DESCRIPTION: Christopher Single View09/13/2021 7:02 am CLINICAL HISTORY: Abdominal pain COMPARISON: 2019 FINDINGS: The lungs appear clear of acute infiltrate. The heart is normal size IMPRESSION: No acute abnormalities displayed
--- NOTE | 2021-09-13 10:12 | ER ---
Nurse's Notes [facility] Name: Demario Johnston Jr Age: 80 yrs Sex: Male : 1940 Arrival Date: 09/13/2021 Time: 06:12 Bed 15 Private MD: Diagnosis: Chest pain, unspecified;Epigastric pain;Hypomagnesemia Presentation: 09/13 06:26 Chief complaint: Patient states: "I am having this pain right there" Patient points to tw5 center of the chest. further states "It has been bothering him all night.". Coronavirus screen: Vaccine status: Patient reports receiving the 2nd dose of the covid vaccine. [employer]. Ebola Screen: Patient negative for fever greater than or equal to 101.5 degrees Fahrenheit, and additional compatible Ebola Virus Disease symptoms Patient denies exposure to infectious person. Patient denies travel to an Ebola-affected area in the 21 days before illness onset. Initial Sepsis Screen: Does the patient meet any 2 criteria? No. Patient's initial sepsis screen is negative. Does the patient have a suspected source of infection? No. Patient's initial sepsis screen is negative. Risk Assessment: Do you want to hurt yourself or someone else? Patient reports no desire to harm self or others. Onset of symptoms was September 12, 2021 at 19:00. 06:26 Method Of Arrival: Ambulatory tw5 06:26 Acuity: JADA 3 tw5 Triage Assessment: 06:28 General: Appears in no apparent distress. Behavior is calm, cooperative, appropriate tw5 for age. Pain: Complains of pain in xiphoid area Pain currently is 7 out of 10 on a pain scale. GI: Reports nausea. Historical: - Allergies: 06:28 Sulfa (Sulfonamide Antibiotics); tw5 - Home Meds: 06:28 metformin 1,000 mg Oral tab 1 tab 2 times per day [Active]; tw5 - PMHx: :28 Diabetes - NIDDM; tw5 - Immunization history:: Flu vaccine is up to date. - Social history:: Smoking status: Patient denies any tobacco usage or history of. Screenin:44 Abuse screen: Denies threats or abuse. Denies injuries from another. Nutritional sarbjit screening: No deficits noted. Tuberculosis screening: No symptoms or risk factors identified. Fall Risk None identified. Assessment: 06:45 General: Appears in no apparent distress. comfortable, Behavior is calm, cooperative. sarbjit Pain: Complains of pain in abdomen. Neuro: No deficits noted. Respiratory: No deficits noted. 07:45 Reassessment: Patient appears in no apparent distress at this time. No changes from ll1 previously documented assessment. Patient and/or family updated on plan of care and expected duration. Pain level reassessed. Patient is alert, oriented x 3, equal unlabored respirations, skin warm/dry/pink. 08:45 Reassessment: No changes from previously documented assessment. Patient and/or family ll1 updated on plan of care and expected duration. Pain level reassessed. Patient is alert, oriented x 3, equal unlabored respirations, skin warm/dry/pink. 09:45 Reassessment: No changes from previously documented assessment. Patient and/or family ll1 updated on plan of care and expected duration. Pain level reassessed. Patient is alert, oriented x 3, equal unlabored respirations, skin warm/dry/pink. 10:45 Reassessment: No changes from previously documented assessment. Patient and/or family ll1 updated on plan of care and expected duration. Pain level reassessed. Patient is alert, oriented x 3, equal unlabored respirations, skin warm/dry/pink. 11:45 Reassessment: No changes from previously documented assessment. Patient and/or family ll1 updated on plan of care and expected duration. Pain level reassessed. Patient is alert, oriented x 3, equal unlabored respirations, skin warm/dry/pink. 12:45 Reassessment: No changes from previously documented assessment. Patient and/or family ll1 updated on plan of care and expected duration. Pain level reassessed. Patient is alert, oriented x 3, equal unlabored respirations, skin warm/dry/pink. 13:45 Reassessment: No changes from previously documented assessment. Patient and/or family ll1 updated on plan of care and expected duration. Pain level reassessed. Patient is alert, oriented x 3, equal unlabored respirations, skin warm/dry/pink. 14:45 Reassessment: No changes from previously documented assessment. Patient and/or family ll1 updated on plan of care and expected duration. Pain level reassessed. Patient is alert, oriented x 3, equal unlabored respirations, skin warm/dry/pink. 15:38 Reassessment: No changes from previously documented assessment. Patient and/or family ll1 updated on plan of care and expected duration. Pain level reassessed. Patient is alert, oriented x 3, equal unlabored respirations, skin warm/dry/pink. to 2nd via wheelchair. Vital Signs: 06:26 BP 137 / 84; Pulse 108; Resp 18; Temp 98.1(TE); Pulse Ox 96% on R/A; Weight 83.91 kg; tw5 Height 6 ft. 2 in. (187.96 cm); Pain 7/10; 06:46 BP 124 / 77; Pulse 101; Resp 14; Temp 98.5; Pulse Ox 100% on R/A; Pain 3/10; sarbjit 07:43 BP 134 / 71; Pulse 88; ll1 08:29 BP 132 / 73; Pulse 76; ll1 10:24 BP 122 / 68; Pulse 91; Resp 14; Pulse Ox 98% ; ll1 14:47 BP 127 / 62; Pulse 95; Resp 15; Temp 97.6; Pulse Ox 96% on R/A; Pain 0/10; ll1 15:37 BP 119 / 70; Pulse 95; Resp 15; Pulse Ox 95% on R/A; Pain 0/10; ll1 06:26 Body Mass Index 23.75 (83.91 kg, 187.96 cm) tw5 ED Course: 06:12 Patient arrived in ED. wm 06:28 Triage completed. tw5 06:28 Arm band placed on right wrist. tw5 06:30 [facility] cp 06:30 Cosme Douglas MD is Attending Physician. cp 06:32 She Taylor, RN is Primary Nurse. sarbjit 06:44 Patient has correct armband on for positive identification. Placed in gown. Bed in low sarbjit position. Side rails up X 1. Adult w/ patient. interlocker maintainer on. Pulse ox on. NIBP on. 06:44 No provider procedures requiring assistance completed. sarbjit 06:51 Inserted saline lock: 20 gauge in right forearm, using aseptic technique. sarbjit 06:52 Lipase Sent. sarbjit 06:52 XRAY Chest (1 view) Sent. sarbjit 06:52 Basic Metabolic Panel Sent. sarbjit 06:52 CBC with Diff Sent. sarbjit 06:52 LFT's Sent. sarbjit 06:52 Magnesium Sent. sarbjit 06:52 NT PRO-BNP Sent. sarbjit 06:52 PT-INR Sent. sarbjit 06:52 Troponin HS Sent. sarbjit 07:02 XRAY Chest (1 view) In Process Unspecified. EDMS 08:09 Chu Wright, RN is Primary Nurse. ll1 09:02 CT Aorta for Dissection In Process Unspecified. EDMS 10:11 Bill Albarran MD is Hospitalizing Provider. cp 15:04 Patient admitted, IV remains in place. ll1 Administered Medications: 06:55 Drug: Pepcid (famotidine) 20 mg Route: IVP; Site: right forearm; sarbjit 10:06 Follow up: Response: No adverse reaction ll1 07:00 Drug: Zofran (Ondansetron) 4 mg Route: IVP; Site: right forearm; sarbjit 10:06 Follow up: Response: No adverse reaction ll1 07:00 Drug: morphine 2 mg {Note: 1st dose.} Route: IVP; Site: right forearm; sarbjit 10:06 Follow up: Response: No adverse reaction ll1 09:09 Drug: Magnesium Sulfate 2 grams Route: IVPB; Infused Over: 2 hrs; Site: right forearm; ll1 10:06 Follow up: Response: No adverse reaction; IV Status: Completed infusion; IV Intake: [id number] Intake: 10:06 IV: 50ml; Total: 50ml. 1 Outcome: 06:44 Condition: stable sarbjit 10:11 Decision to Hospitalize by Provider. cp 15:03 Admitted to Med/surg accompanied by tech, via wheelchair, room 219, with chart, Report ll1 called to Sander Cotton 15:03 Instructed on the need for admit. 15:38 Patient left the ED. ll1 Signatures: Dispatcher [employer] EDIA Cosme Gomez PA PA cp Chu Wright, RN RN ll1 Randi Rainey Tiffany tw5 She Taylor RN RN sarbjit
--- NOTE | 2021-09-13 10:12 | EDPHYS ---
Physician Documentation [facility] Name: Demario Johnston Jr Age: 80 yrs Sex: Male : 1940 Arrival Date: 09/13/2021 Time: 06:12 Bed 15 Private MD: ED Physician Cosme Douglas HPI: 09/13 06:45 This 80 yrs old Male presents to ER via Ambulatory with complaints of Epigastric Pain, cp Chest Pain > 30 y/o. 06:45 The patient presents with abdominal pain in the epigastric area. Onset: The cp symptoms/episode began/occurred last night. The symptoms do not radiate. Associated signs and symptoms: Pertinent positives: nausea, Pertinent negatives: constipation, dysuria, fever, palpitations, shortness of breath, vomiting. Historical: - Allergies: :28 Sulfa (Sulfonamide Antibiotics); tw5 - Home Meds: :28 metformin 1,000 mg Oral tab 1 tab 2 times per day [Active]; tw5 - PMHx: 06:28 Diabetes - NIDDM; tw5 - Immunization history:: Flu vaccine is up to date. - Social history:: Smoking status: Patient denies any tobacco usage or history of. ROS: 06:49 Constitutional: Negative for body aches, chills, fever, poor PO intake. cp 06:49 Eyes: Negative for injury, pain, redness, and discharge. cp 06:49 Cardiovascular: Positive for chest pain, Negative for edema, palpitations. 06:49 Respiratory: Negative for cough, shortness of breath, wheezing. 06:49 Abdomen/GI: Positive for abdominal pain, nausea, of the epigastric area, Negative for vomiting, diarrhea, constipation, dysphagia. 06:49 Back: Negative for radiated pain. 06:49 Neuro: Negative for altered mental status, dizziness, headache, syncope, weakness. 06:49 All other systems are negative. Exam: 06:50 ECG was reviewed by the Attending Physician. cp 06:50 Constitutional: The patient appears in no acute distress, alert, awake, cp non-diaphoretic, non-toxic, well developed, well nourished, uncomfortable. 06:50 Head/Face: Normocephalic, atraumatic. cp 06:50 Eyes: Periorbital structures: appear normal, Conjunctiva: normal, no exudate, no injection, Sclera: no appreciated abnormality, Lids and lashes: appear normal, bilaterally. 06:50 ENT: External ear(s): are unremarkable, Nose: is normal, Mouth: Lips: moist, Oral mucosa: moist, Posterior pharynx: Airway: no evidence of obstruction, patent. 06:50 Neck: ROM/movement: is normal, is supple, without pain, no range of motions limitations. 06:50 Chest/axilla: Inspection: normal, Palpation: tenderness, that is moderate, of the xiphoid area. 06:50 Cardiovascular: Rate: tachycardic, Rhythm: regular, JVD: is not appreciated. 06:50 Respiratory: the patient does not display signs of respiratory distress, Respirations: normal, no use of accessory muscles, no retractions, labored breathing, is not present, Breath sounds: are clear throughout, no decreased breath sounds, no stridor, no wheezing. 06:50 Abdomen/GI: Inspection: distension, that is mild, Palpation: soft, in all quadrants, moderate abdominal tenderness, in the epigastric area, rebound tenderness, is not appreciated, involuntary guarding, is not appreciated. 06:50 Back: CVA tenderness, is absent. 06:50 Neuro: Orientation: to person, place \\T\\ time. Mentation: is normal, Motor: moves all fours, strength is normal, Sensation: is normal. Vital Signs: 06:26 BP 137 / 84; Pulse 108; Resp 18; Temp 98.1(TE); Pulse Ox 96% on R/A; Weight 83.91 kg; tw5 Height 6 ft. 2 in. (187.96 cm); Pain 7/10; 06:46 BP 124 / 77; Pulse 101; Resp 14; Temp 98.5; Pulse Ox 100% on R/A; Pain 3/10; sarbjit 07:43 BP 134 / 71; Pulse 88; ll1 08:29 BP 132 / 73; Pulse 76; ll1 10:24 BP 122 / 68; Pulse 91; Resp 14; Pulse Ox 98% ; ll1 14:47 BP 127 / 62; Pulse 95; Resp 15; Temp 97.6; Pulse Ox 96% on R/A; Pain 0/10; ll1 15:37 BP 119 / 70; Pulse 95; Resp 15; Pulse Ox 95% on R/A; Pain 0/10; ll1 06:26 Body Mass Index 23.75 (83.91 kg, 187.96 cm) tw5 MDM: 06:31 Patient medically screened. cp 07:00 Differential diagnosis: AAA, cholecystitis, Cholelithiasis, gastritis, pancreatitis, cp Peptic Ulcer Disease, Perf. Duodenal Ulcer, Perf. Gastric Ulcer. 10:00 Data reviewed: vital signs, nurses notes, lab test result(s), EKG, radiologic studies, cp CT scan, plain films. 10:00 Test interpretation: by ED physician or midlevel provider: ECG, plain radiologic cp studies. Physician consultation: Bill Albarran MD was called at 10:00, was contacted at 10:00, regarding admission, to the telemetry unit. patient's condition. 09/13 06:42 Order name: Basic Metabolic Panel; Complete Time: 08:45 cp 09/13 08:45 Interpretation: Normal except: GLUC 200; BUN 19; GFR 65. cp 09/13 06:42 Order name: CBC with Diff; Complete Time: 07:53 cp 09/13 07:53 Interpretation: Normal except: LUIS ARMANDO% 77.2; LYM% 13.1; NEUT A 8.1. cp 09/13 06:42 Order name: LFT's; Complete Time: 08:45 cp 09/13 09:40 Interpretation: Normal except: AST 13; A/G 1.0. cp 09/13 06:42 Order name: Magnesium; Complete Time: 08:45 cp 09/13 06:42 Order name: NT PRO-BNP; Complete Time: 08:45 cp 09/13 06:42 Order name: PT-INR; Complete Time: 07:53 cp 09/13 06:42 Order name: Troponin HS; Complete Time: 08:45 cp 09/13 06:42 Order name: XRAY Chest (1 view); Complete Time: 09:37 cp 09/13 06:42 Order name: Lipase; Complete Time: 08:45 cp 09/13 07:00 Order name: CT Aorta for Dissection; Complete Time: 09:37 cp 09/13 10:16 Order name: COVID-19 SARS RT PCR (Document "Date of Onset" if Symptomatic) bd 09/13 15:02 Order name: Troponin High Sensitivity EDMS 09/13 06:42 Order name: EKG; Complete Time: 06:42 cp 09/13 06:42 Order name: Cardiac monitoring; Complete Time: 06:52 cp 09/13 06:42 Order name: EKG - Nurse/Tech; Complete Time: 06:52 cp 09/13 06:42 Order name: IV Saline Lock; Complete Time: 06:52 cp 09/13 06:42 Order name: Labs collected and sent; Complete Time: 06:52 cp 09/13 06:42 Order name: O2 Per Protocol; Complete Time: 06:52 cp 09/13 06:42 Order name: O2 Sat Monitoring; Complete Time: 06:52 cp 09/13 12:21 Order name: CONS Physician Consult EDMS EC:50 Rate is 99 beats/min. Rhythm is regular. KS interval is normal. QRS interval is normal. cp QT interval is normal. T waves are Inverted in lead aVR. Interpreted by me. Reviewed by me. Administered Medications: 06:55 Drug: Pepcid (famotidine) 20 mg Route: IVP; Site: right forearm; sarbjit 10:06 Follow up: Response: No adverse reaction ll1 07:00 Drug: Zofran (Ondansetron) 4 mg Route: IVP; Site: right forearm; sarbjit 10:06 Follow up: Response: No adverse reaction ll1 07:00 Drug: morphine 2 mg {Note: 1st dose.} Route: IVP; Site: right forearm; sarbjit 10:06 Follow up: Response: No adverse reaction ll1 09:09 Drug: Magnesium Sulfate 2 grams Route: IVPB; Infused Over: 2 hrs; Site: right forearm; ll1 10:06 Follow up: Response: No adverse reaction; IV Status: Completed infusion; IV Intake: [id number] Disposition Summary: 09/13/21 10:11 Hospitalization Ordered Hospitalization Status: Observation cp Provider: Bill Albarran cp Location: Telemetry/MedSurg (observation) cp Condition: Stable cp Problem: new cp Symptoms: have improved cp Bed/Room Type: Standard cp Room Assignment: 219(09/13/21 14:32) bd Diagnosis - Chest pain, unspecified cp - Epigastric pain cp - Hypomagnesemia cp Forms: - Medication Reconciliation Form cp - SBAR form cp Signatures: Dispatcher [employer] EDMS Chayo Altamirano Corey, PA PA cp Chu Wright RN RN ll1 Caty Clark tw5 She Taylor RN RN sarbjit Corrections: (The following items were deleted from the chart) 14:32 10:11 cp bd 09/14 15:03 09/13 06:50 Chest/axilla: Inspection: normal, Palpation: is normal, no crepitus, no cp tenderness, cp
--- NOTE | 2021-09-13 11:14 | EKG ---
Test Date: 2021-09-13 Test Time: 06:44:46 Sales And Catering Coordinator: TRACIET MEASUREMENT RESULTS: Intervals: Rate: 99 RI: 164 QRSD: 68 QT: 344 QTc: 441 [place]: P: 93 RI: 164 QRS: -38 T: 49 INTERPRETIVE STATEMENTS: Sinus rhythm with premature supraventricular complexes Left axis deviation Pulmonary disease pattern Abnormal ECG Compared to ECG 06/02/2020 09:02:43 Atrial premature complex(es) now present Left-axis deviation now present Myocardial infarct finding no longer present Electronically Signed On 09-13-21 11:13:34 CLIENT SERVICE CONSULTANT by Gigi Medina
--- NOTE | 2021-09-13 12:25 | P.HP ---
Certification for Inpatient Patient admitted to: Observation With expected LOS: <2 Midnights Practitioner: I am a practitioner with admitting privileges, knowledge of patient current condition, hospital course, and medical plan of care. Services: Services provided to patient in accordance with Admission requirements found in Title 42 Section 412.3 of the Code of Federal Regulations Patient History Date of Service: 09/13/21 Primary Care Provider: Vanita Reason for admission: Chest pain History of Present Illness: 80yo M, PMH: NIDDM2, GERD Presents to ED due to lower chest/upper abdominal pain that began last night at 7 PM. Currently he is not having any pain. States nothing seemed to aggravate or alleviate his pain. Described as burning sensation, points to lower sternum/epigastric region. Reports occasional heartburn, takes Tums 1-2 times within 1-2 weeks, has not been worsening lately. Denies fever/chills. Denies any cardiac history. No prior chest pain. In the ED EKG without acute ischemic changes, initial troponin negative. CT chest without any acute process, no aortic aneurysm ER asking for observation to further investigate patient's chest pain. Allergies Sulfa (Sulfonamide Antibiotics) Allergy (Verified 06/02/20 09:04) Rash Home Medications: Glimepiride [Amaryl] 5 mg PO DAILY 11/23/14 Metformin HCl [Glucophage] 1,000 mg PO BID 11/23/14 ramipriL [Altace*] 5 mg PO DAILY 11/23/14 Cranberry Conc/C/Bacill Coag [Cranberry Tablet] 1 each PO DAILY 06/02/20 Multivit-Min/FA/Lycopen/Lutein [Centrum Silver Tablet] 1 tab PO DAILY 06/02/20 - Past Medical/Surgical History Diabetic: Yes -: Diabetes mellitus II -: hernia repair -: appendectomy - Family History Father -: Heart disease Mother -: Lung disease - Social History Smoking Status: Unknown if ever smoked Alcohol use: Yes CD- Drugs: No Caffeine use: Yes Place of Residence: Home Review of Systems 10-point ROS is otherwise unremarkable Physical Examination - Physical Exam General: Alert, In no apparent distress, Oriented x3 HEENT: Mucous membr. moist/pink, Sclerae nonicteric Neck: Supple Respiratory: Clear to auscultation bilaterally, Normal air movement Cardiovascular: No edema, Regular rate/rhythm, No murmurs Gastrointestinal: Soft and benign, Non-distended, Tenderness (In the epigastric region) Musculoskeletal: No erythema, No tenderness Integumentary: No rashes, No significant lesion Neurological: Normal speech, Normal affect - Studies Laboratory Data (last 24 hrs) 09/13/21 06:50: PT 11.0, INR 0.96 09/13/21 06:50: Sodium 138, Potassium 4.1, BUN 19 H, Creatinine 1.09, Glucose 200 H, Magnesium 1.0 L* D, Total Bilirubin 0.5, AST 13 L, ALT 21, Alkaline Phosphatase 71, Lipase 149 09/13/21 06:42: WBC 10.50, Hgb 13.9, Hct 42.0, Plt Count 207 Assessment and Plan - Advance Directives Does patient have a Living Will: No Does patient have a Durable POA for Healthcare: No Physician Review Additional Text: Problem list Chest pain / Epigastric pain GERD Hypertension [id number] diabetes mellitus type 2 Patient with substernal chest pain/epigastric pain since last night at 7 PM, unable to get much sleep EKG and troponin negative Cardiology consulted for ACS rule out, recommended echocardiogram Denies any prior cardiac issues Patient does report having some heartburn, takes Tums maybe once every 1-2 weeks, did not help yesterday Some epigastric tenderness on exam, somewhat similar to the pain he has been having, possible GERD/ulcer related Aspirin, beta-lydia, statin Lovenox for DVT prophylaxis Protonix twice daily, Carafate VTE: Lovenox Code: Full Dispo: Possible DC home tomorrow Time Spent Managing Pts Care (In Minutes): 60
[2021-09-13 16:18] VITALS: BMI 23.7
[2021-09-13] MEDS: INSULIN -REGULAR HUMAN 50 UNIT/0.5 ML ML SQ SCH ×2 (16:19→21:00)
[2021-09-13] MEDS: SUCRALFATE 1GM/10ML UCUP FT SCH ×2 (17:30→21:13)
[2021-09-13] MEDS: PANTOPRAZOLE 40MG TABLET PO SCH (17:30)
[2021-09-13] MEDS: METOPROLOL TAR 25 MG TAB PO SCH (19:00)
[2021-09-13] MEDS ORDERED: ATORVASTATIN 40 MG TAB PO SCH (21:00)
[2021-09-14 05:59] LABS: Absolute Lymphocytes (CBC) 1.3 K/uL (0.7-4.9); Lymphocytes % 13.5 % (15.3-44.8); MPV 8.3 fL (7.6-11.3); RBC Red Blood Cell Count 3.86 M/uL (4.33-5.43)
[2021-09-14 06:11] LABS: Albumin 2.7 g/dL (3.4-5.0); Bilirubin Total 0.6 mg/dL (0.2-1.0); Protein, Total 5.6 g/dL (6.4-8.2)
[2021-09-14] MEDS: METOPROLOL TAR 25 MG TAB PO SCH (06:12)
[2021-09-14 06:13] LABS: Magnesium 1.3 mg/dL (1.8-2.4)
[2021-09-14] MEDS: INSULIN -REGULAR HUMAN 50 UNIT/0.5 ML ML SQ SCH (07:30)
[2021-09-14] MEDS ORDERED: Magnesium Sulfate 2gm IVPB 2 G/50 ML BAG IV ONE (07:46)
[2021-09-14] MEDS: SUCRALFATE 1GM/10ML UCUP FT SCH (08:27)
[2021-09-14] MEDS: PANTOPRAZOLE 40MG TABLET PO SCH (08:27)
[2021-09-14 08:36] VITALS: O2SAT 96
[2021-09-14 08:49] VITALS: BP 119/57; TEMP 98.4
[2021-09-14] MEDS ORDERED: ENOXAPARIN 40 MG/0.4 ML SQ SCH (09:00)
[2021-09-14] MEDS ORDERED: ASPIRIN 81 MG CHEWABLE TABLET PO SCH (09:00)
--- NOTE | 2021-09-14 20:44 | P.DS ---
Admission Date: 09/13/21 Discharge Date: 09/14/21 Primary Care Provider: Vanita Disposition: ROUTINE DISCHARGE Discharge Condition: GOOD Reason for Admission: Chest pain Consultations: Cardiology - Dr. Medina Procedures: Problem list Chest pain / Epigastric pain secondary to GERD / possible gastric ulcer GERD Hypertension [id number] diabetes mellitus type 2 Brief History of Present Illness: 80yo M, PMH: NIDDM2, GERD Presents to ED due to lower chest/upper abdominal pain that began last night at 7 PM. Currently he is not having any pain. States nothing seemed to aggravate or alleviate his pain. Described as burning sensation, points to lower sternum/epigastric region. Reports occasional heartburn, takes Tums 1-2 times within 1-2 weeks, has not been worsening lately. Denies fever/chills. Denies any cardiac history. No prior chest pain. In the ED EKG without acute ischemic changes, initial troponin negative. CT chest without any acute process, no aortic aneurysm ER asking for observation to further investigate patient's chest pain. Hospital Course: Chest pain was evaluated by EKG, troponins, and telemetry which were all negative. He was noted to have low magnesium, which has been noted previously. This improved with repletion. Cardiology was consulted, recommended to obtain echocardiogram prior to discharge and follow up in office for possible outpatient stress test. Patient was noted to have epigastric tenderness on exam and pain improved with c arafate and protonix. Pain is likely secondary to gastritis/ possible ulcer. Patient does have history of GERD. He is discharged with prescription for protonix and magnesium. Vital Signs/Physical Exam: Temp Pulse Resp BP Pulse Ox 98.4 F 88 18 119/57 L 97 09/14/21 08:00 09/14/21 08:00 09/14/21 08:00 09/14/21 08:00 09/14/21 08:00 - Physical Exam General: Alert, In no apparent distress, Oriented x3 HEENT: Mucous membr. moist/pink, Sclerae nonicteric Respiratory: Clear to auscultation bilaterally, Normal air movement Cardiovascular: No edema, Regular rate/rhythm, No murmurs Gastrointestinal: Soft and benign, Non-distended, Tenderness (In the epigastric region) Musculoskeletal: No erythema, No tenderness Integumentary: No rashes, No significant lesion Neurological: Normal speech, Normal affect Laboratory Data at Discharge: WBC 9.30 K/uL (4.3-10.9) 09/14/21 05:31 Hgb 11.9 g/dL (13.6-17.9) L 09/14/21 05:31 Hct 35.0 % (39.6-49.0) L D 09/14/21 05:31 Plt Count 154 K/uL (152-406) D 09/14/21 05:31 PT 11.0 SECONDS (9.5-12.5) 09/13/21 06:50 INR 0.96 09/13/21 06:50 Sodium 137 mmol/L (136-145) 09/14/21 05:31 Potassium 4.0 mmol/L (3.5-5.1) 09/14/21 05:31 BUN 17 mg/dL (7-18) 09/14/21 05:31 Creatinine 1.04 mg/dL (0.55-1.3) 09/14/21 05:31 Glucose 174 mg/dL (74-106) H 09/14/21 05:31 Magnesium 1.3 mg/dL (1.8-2.4) L* 09/14/21 05:31 Total Bilirubin 0.6 mg/dL (0.2-1.0) 09/14/21 05:31 AST 12 U/L (15-37) L 09/14/21 05:31 ALT 16 U/L (12-78) 09/14/21 05:31 Alkaline Phosphatase 51 U/L (45-117) 09/14/21 05:31 Triglycerides 79 mg/dL (<150) 09/14/21 05:31 Cholesterol 96 mg/dL (<200) 09/14/21 05:31 HDL Cholesterol 41 mg/dL (40-60) 09/14/21 05:31 Cholesterol/HDL Ratio 2.34 09/14/21 05:31 Lipase 149 U/L (73-393) 09/13/21 06:50 Home Medications: Glimepiride [Amaryl] 5 mg PO DAILY 11/23/14 Metformin HCl [Glucophage] 1,000 mg PO BID 11/23/14 ramipriL [Altace*] 5 mg PO DAILY 11/23/14 Cranberry Conc/C/Bacill Coag [Cranberry Tablet] 1 each PO DAILY 06/02/20 Multivit-Min/FA/Lycopen/Lutein [Centrum Silver Tablet] 1 tab PO DAILY 06/02/20 Magnesium Chloride [Slow-Mag*] 64 mg PO DAILY 30 Days #30 tab 09/14/21 Pantoprazole [Protonix Tab*] 40 mg PO BIDAC 30 Days #60 tab 09/14/21 New Medications: Pantoprazole [Protonix Tab*] 40 mg PO BIDAC 30 Days #60 tab Magnesium Chloride [Slow-Mag*] 64 mg PO DAILY 30 Days #30 tab Physician Discharge Instructions: Chest pain was evaluated by EKG, troponins, and telemetry which were all negativ e. He was noted to have low magnesium, which has been noted previously. This improved with repletion. Cardiology was consulted, recommended to obtain echocardiogram prior to discharge and follow up in office for possible outpatient stress test. Patient was noted to have epigastric tenderness on exam and pain improved with carafate and protonix. Pain is likely secondary to gastritis/ possible ulcer. Patient does have history of GERD. He is discharged with prescription for protonix and magnesium. Diet: Regular Activity: Ad bertha Followup: Suraj Waldron MD [Primary Care Provider] - (Call to schedule appointment) Time spent managing pt's care (in minutes): 45
--- NOTE | 2021-09-15 08:05 | ECHO ---
HEIGHT: 6 ft 2 in WEIGHT: 184 lb 15.838 oz DATE OF STUDY: 09/13/[address]: Bill Albarran MD 2-DIMENSIONAL: YES M.MODE: YES DOPPLER: YES COLOR FLOW: YES TDS: YES PORTABLE: NO DEFINITY: NO BUBBLE STUDY: NO DIAGNOSIS: CHEST PAIN CARDIAC HISTORY: CATHERIZATION: NO SURGERY: NO PROSTHETIC VALVE: NO PACEMAKER: NO MEASUREMENTS (cm) DIASTOLIC (NORMALS) SYSTOLIC (NORMALS) IVSd 1.1 (0.6-1.2) LA Diam 3.5 (1.9-4.0) LVEF % LVIDd 4.0 (3.5-5.7) LVIDs 3.0 (2.0-3.5) %FS % LVPWd 1.2 (0.6-1.2) Ao Diam 3.0 (2.0-3.7) 2 DIMENSIONAL ASSESSMENT: RIGHT ATRIUM: LEFT ATRIUM: RIGHT VENTRICLE: LEFT VENTRICLE: TRICUSPID VALVE: MITRAL VALVE: PULMONIC VALVE: AORTIC VALVE: PERICARDIAL EFFUSION: AORTIC ROOT: LEFT VENTRICULAR WALL MOTION: UNABLE TO EVALUATE DUE TO POOR WINDOWS. DOPPLER/COLOR FLOW: MILD TRICUSPID AND MITRAL REGURGITATION. COMMENTS: VERY LIMITED STUDY. UNABLE TO EVALUATE WALL MOTION OR EJECTION FRACTION ACCURATELY. RECOMMEND CONTRAST ECHO. MILD TRICUSPID AND MITRAL REGURGITATION BY DOPPLER. TECHNOLOGIST: Carlton WHALEY
--- NOTE | 2021-09-15 16:00 | CON ---
Date of Consultation: 09/13/[address] Albarran on 09/13/2021. I saw the patient on 09/13/2021. Reason For Consultation: Chest pain. History Of Present Illness: Mr. Johnston is an 80-year-old white male with history of diabetes. N o previous cardiac history. He only takes metformin at home. He is allergic to sulfa. He came in w ith atypical chest pain, mostly in the midepigastric region. The pain did not radiate. It was not e xertional. He does have some nausea, but no vomiting. No diaphoresis. He denies any PND, orthopnea , pedal edema, palpitations, syncope, fever or chills. By the time he showed up to the emergency sat[facility] , he has already had a negative troponin. He had an EKG showed pulmonary disease pattern. He had a CT dissection that showed some COPD, mild atherosclerosis, but it was negative for aortic dissection . He was pain free when I saw him. Past Medical History: As stated above. Allergies: SULFA. Review of Systems: Negative. Social History: Negative. Family History: Negative. Medications: At home include metformin. Physical Examination: Vital Signs: Stable. He was afebrile. HEENT: Negative. Neck: Supple. No bruits. Chest: Clear to auscultation and percussion. Cardiac: Revealed a regular rhythm and rate. No murmurs, gallops, or rubs. Abdomen: Benign. Extremities: Revealed no clubbing, cyanosis, or edema. Diagnostic Data: Showed elevated glucose, a very low magnesium, otherwise everything else was normal . Impression And Plan: Atypical chest pain, most likely related to gastroesophageal reflux disease. Kayla campbell needs his magnesium supplemented. He needs his sugar better controlled. He needs to follow up carolynn Ashraf in the near future. This is not a cardiac issue, is a definite benign acute coronary s yndrome. I think with his diabetes, he desires to have a cardiac workup down the road and I think do ing an outpatient stress test is reasonable. Otherwise, after his magnesium supplemented, I think he can go home with followup with his primary care physician and with us in the near future. NB/MODL Voice ID: [id number] Report ID: [id number]
== END 2021-09-14 11:07 | disposition home or self-care (01) ==
LOC: ER 06:06 → ERHOLD 12:19 → 2ND 15:04
PROVIDERS: ADMIT Hospitalist; ATTEND Hospitalist
DX: R07.9 Chest pain, unspecified (principal); K21.9 Gastro-esophageal reflux disease without esophagitis; I10 Essential (primary) hypertension; E11.9 Type 2 diabetes mellitus without complications; E83.42 Hypomagnesemia; Z20.822 Contact with and (suspected) exposure to COVID-19; Z88.2 Allergy status to sulfonamides; Z82.49 Family history of ischemic heart disease and other diseases of the circulatory system; Z83.6 Family history of other diseases of the respiratory system
CPT/HCPCS: 96365; 93005; 93306; 85025 ×2; 80048; 36415; 83735 ×2; 85610; 80061; 82947; 80076; 84484 ×3; 83690; 80053; 83880; 71275; 74175; 71045; 96375; 99285; U0003; Q9967; J1650; J2270; J3475 ×2; J2405; G0378 ×3

== ENCOUNTER 2022-04-15 10:03 | Emergency (ER) | payer OTHER ==
[2022-04-15 10:37] LABS: Absolute Lymphocytes (CBC) 1.2 K/uL (0.7-4.9); Lymphocytes % 15.1 % (15.3-44.8); MCV 92.4 fL (80-100); MPV 8.4 fL (7.6-11.3); RBC Red Blood Cell Count 4.11 M/uL (4.33-5.43)
[2022-04-15 10:53] LABS: Potassium 4.4 mmol/L (3.5-5.1)
--- NOTE | 2022-04-15 11:19 | RAD REPORT ---
EXAM DESCRIPTION: CT - CTHCSPWOC - 04/15/2022 11:02 am CLINICAL HISTORY: fall COMPARISON: No comparisons TECHNIQUE: Axial 5 mm thick images of the head were obtained. Axial 2 mm thick images of the cervic al spine were obtained with sagittal and coronal reconstruction images generated and reviewed. All CT scans are performed using dose optimization technique as appropriate and may include automated exposure control or mA/KV adjustment according to patient size. FINDINGS: No intracranial hemorrhage, mass, edema or acute intracranial finding. No suspicion for ac kwadwo infarction. No cortical edema or sulcal effacement. Atrophy is mild for age with ventricles in pr oportion. Patient has very little chronic ischemic change. Arterial calcifications are present. Masto id air cells are clear. Facial bones, orbits and sinuses are separately detailed. A 3.3 centimeter ov oid low-density mass is present in the diploic space posterior left frontal bone just left of midline . This expands the diploic space slightly. The outer cortex is intact. There is thinning and probable disruption of the inner cortex. 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 The outer cortex is convex and is likely palpable. Correlation can be made to determine if the patient is aware a long -standing protuberance of bone in this location. Cervical body height and alignment are normal. C2-3 disc space narrowing is present with prominent di sc bulge and endplate spurring changes. Central canal is stenotic at 9 mm. Moderate left bony foramin al stenosis present. Disc bulge and endplate spurring changes at C3-4 cause borderline spinal stenosi s at 9-10 mm and mild to moderate bilateral bony foraminal stenosis. Mild right-side and moderate lef t-sided foraminal stenosis at C5-6. C6-7 disc space is narrowed. No fracture or acute bony abnormalit y. Central canal detail is inherently limited. No paraspinal mass or hematoma. IMPRESSION: No hemorrhage, edema or acute intracranial finding identifiable. Facial bones, sinuses a nd orbits are separately detailed. Cervical spine degenerative changes are present with multiple levels showing borderline to mild spina l stenosis. Multilevel foraminal stenosis present. A 3.3 centimeter ovoid low-density mass in the left frontal bone diploic space near the midline is be lieved to be a large benign arachnoid granulation. This is probably palpable and can be correlated w ith any patient history of long-standing bony mass.
--- NOTE | 2022-04-15 11:26 | RAD REPORT ---
EXAM DESCRIPTION: CT - Facial Bones W/ Mpr - 04/15/2022 11:03 am CLINICAL HISTORY: Fall, facial trauma COMPARISON: None. TECHNIQUE: Axial 2 millimeter thick images of the facial bones were obtained with sagittal and coron al reconstruction imaging. All CT scans are performed using dose optimization technique as appropriate and may include automated exposure control or mA/KV adjustment according to patient size. FINDINGS: The bilateral mandibular condyles are fractured. The articulating portion of each condyle has been fractured and displaced anterior and medial to the ramus. The articulating portion of each c ondyle has been dislocated from the joint cavity and abut the medial margin of each articular tubercl e of the skullbase. No other mandible fracture seen. Patient is edentulous. Mastoid air cells are clear. No acute paranas al sinus finding. No other facial bone fractures seen. No globe or orbital content abnormality. No air or foreign body in the soft tissues. IMPRESSION: Fracture of each mandibular condyle with the articulating portion dislocated anterior an d medial to each ramus.
--- NOTE | 2022-04-15 11:29 | RAD REPORT ---
EXAM DESCRIPTION: RAD - Chest Single View - 04/15/2022 11:22 am CLINICAL HISTORY: fall, right-sided chest pain TECHNIQUE: AP portable chest image was obtained 04/15/2022 11:22 am . FINDINGS: Lungs are clear. Interstitial pattern matches comparison. Heart and vasculature are normal . No measurable pleural effusion and no pneumothorax. No gross rib deformity seen. Concerns for rib f racture can be further evaluated with dedicated rib films or CT chest imaging. No acute aortic findin gs suspected. IMPRESSION: No acute cardiopulmonary process. No significant change from comparison study.
--- NOTE | 2022-04-15 11:38 | EDPHYS ---
Physician Documentation [facility] Name: Demario Johnston Jr Age: 81 yrs Sex: Male : 1940 Arrival Date: 04/15/2022 Time: 10:05 Bed 6 Private MD: ED Physician Marin Herman HPI: 04/15 10:14 This 81 yrs old Male presents to ER via Unassigned with complaints of Fall Injury, Jaw ms3 Pain, rib pain. 10:14 81-year-old male presents with his status post trip and fall 15 to 20 minutes ms3 prior to arrival while walking. Patient states the sidewalk was uneven causing him to trip. Patient states he has mild pain located in his jaw and right side of his chest. Patient denies alleviating or inciting factors. Patient denies loss of consciousness, or taking blood thinners.. Historical: - Allergies: 10:45 Sulfa (Sulfonamide Antibiotics); tp1 - Home Meds: 10:45 metformin 1,000 mg Oral tab 1 tab 2 times per day [Active]; Glimepiride Oral [Active]; tp1 Ramipril Oral [Active]; - PMHx: 10:45 Diabetes - NIDDM; tp1 - Immunization history:: Client reports receiving the 2nd dose of the Covid vaccine. - Social history:: Smoking status: Patient denies any tobacco usage or history of. - Immunization history: Last tetanus immunization: > 10 years ago. ROS: 10:14 Constitutional: Negative for fever, and chills. Neck: Negative for injury, pain, and ms3 swelling, Cardiovascular: Negative for chest pain, and palpitations. Respiratory: Negative for shortness of breath, cough, wheezing, and pleuritic chest pain, Abdomen/GI: Negative for abdominal pain, nausea, vomiting, diarrhea, and constipation. 10:14 Skin: Positive for abrasion(s), laceration(s). Exam: 18:00 Constitutional: This is a well developed, well nourished patient who is awake, alert, ms3 and in no acute distress. 18:00 Neck: Trachea midline, no cervical lymphadenopathy. Supple, full range of motion without nuchal rigidity, or vertebral point tenderness. No Meningismus. Chest/axilla: Normal chest wall appearance and motion. Nontender with no deformity. Cardiovascular: Regular rate and rhythm with a normal S1 and S2. No gallops, murmurs, or rubs. Normal PMI, no JVD. No pulse deficits. Respiratory: Lungs have equal breath sounds bilaterally, clear to auscultation and percussion. No rales, rhonchi or wheezes noted. No increased work of breathing, no retractions or nasal flaring. Abdomen/GI: Soft, non-tender, with normal bowel sounds. No distension or tympany. No guarding or rebound. No evidence of tenderness throughout. Psych: Awake, alert, with orientation to person, place and time. Behavior, mood, and affect are within normal limits. 18:00 Head/face: Noted is a laceration(s), that is superficial, that is linear, 3 cm(s), of the chin. 18:00 Skin: injury, abrasion(s), moderate sized abrasion noted, of the right knee. Vital Signs: 10:29 BP 168 / 90; Pulse 100; Resp 16; Temp 97.7(TE); Pulse Ox 100% on R/A; Weight 84.37 kg; tp1 Height 6 ft. 2 in. (187.96 cm); 10:45 BP 147 / 84; Pulse 91; Resp 15; Pulse Ox 99% ; jl7 11:29 BP 141 / 74; Pulse 90; Resp 15; Pulse Ox 99% ; jl7 12:29 BP 153 / 74; Pulse 89; Resp 15; Pulse Ox 100% on R/A; tp1 13:26 BP 154 / 85; Pulse 88; Resp 15; Pulse Ox 100% on R/A; tp1 10:29 Body Mass Index 23.88 (84.37 kg, 187.96 cm) tp1 [place] Coma Score: 10:10 Eye Response: spontaneous(4). Verbal Response: oriented(5). Motor Response: obeys vg1 commands(6). Total: 15. 10:45 Eye Response: spontaneous(4). Verbal Response: oriented(5). Motor Response: obeys jl7 commands(6). Total: 15. 11:29 Eye Response: spontaneous(4). Verbal Response: oriented(5). Motor Response: obeys jl7 commands(6). Total: 15. Trauma Score (Adult): 10:10 Eye Response: spontaneous(1); Verbal Response: oriented(1); Motor Response: obeys vg1 commands(2); Systolic BP: > 89 mm Hg(4); Respiratory Rate: 10 to 29 per min(4); [place] Score: 15; Trauma Score: 12 Laceration: 12:33 Wound Repair of 2cm ( 0.8in ) subcutaneous laceration to chin. Distal jmm neuro/vascular/tendon intact. Anesthesia: Local anesthetic administered with 1 mls of 1% lidocaine. Wound prep: Simple cleansing by nurse. Skin closed with 4 1-0 [place] using staple gun. Patient tolerated well. MDM: 10:13 Patient medically screened. ms3 17:59 Differential diagnosis: abrasion, closed head injury, contusion, fracture, laceration, ms3 sprain, strain. Data reviewed: vital signs, nurses notes, lab test result(s), radiologic studies. Counseling: I had a detailed discussion with the patient and/or guardian regarding: the historical points, exam findings, and any diagnostic results supporting the discharge/admit diagnosis, lab results, radiology results, the need to transfer to another facility. ED course: Discussed necessity for transfer with patient. Patient understood and agreed with plan. All questions were answered. Patient remained in stable condition while in the emergency department.. 04/15 10:14 Order name: Basic Metabolic Panel; Complete Time: 11:15 ms3 04/15 10:14 Order name: CBC with Diff; Complete Time: 11:15 ms3 04/15 10:14 Order name: Type And Screen; Complete Time: 11:15 ms3 04/15 10:14 Order name: CT Head C Spine; Complete Time: 11:31 ms3 04/15 11:37 Order name: SARS RAPID; Complete Time: 12:59 eb 04/15 12:14 Order name: ABO/RH no charge; Complete Time: 12:59 EDMS 04/15 10:14 Order name: XRAY Chest (1 view); Complete Time: 11:31 ms3 04/15 10:14 Order name: Labs collected and sent; Complete Time: 10:46 ms3 04/15 10:14 Order name: CT Facial Bones W/O Con; Complete Time: 11:31 ms3 Administered Medications: 03:21 Drug: morphine 4 mg Route: IVP; Infused Over: 4 mins; Site: right antecubital; tp1 13:25 Follow up: Response: Medication administered at discharge. tp1 13:25 Drug: Tetanus Immune Globulin 250 units Route: IM; Site: right deltoid; tp1 13:25 Follow up: Response: Medication administered at discharge. tp1 Disposition: 17:59 Co-signature as Attending Physician, Marin Herman DO. ms3 18:01 Chart complete. ms3 Disposition Summary: 04/15/22 11:37 Transfer Ordered Transfer Location: [facility] ms3 Reason: Higher level of care ms3 Condition: Stable ms3 Problem: new ms3 Symptoms: are unchanged ms3 Accepting Physician: Dr Ríos(04/15/22 13:30) tp1 Diagnosis - Fracture of mandible ms3 - Mandibular dislocation bilaterally ms3 - chin laceration ms3 - Fall on same level, unspecified ms3 Forms: - Medication Reconciliation Form ms3 - SBAR form ms3 Signatures: Dispatcher [employer] EDFranc Calvert PA PA jmm Botello, Elizabeth eb Sims, Marcus, DO DO ms3 Caty Merlos RN RN tp1 Corrections: (The following items were deleted from the chart) 12:06 11:37 Dr luke eb 13:30 12:06 Dr Ríos eb tp1
--- NOTE | 2022-04-15 11:38 | ER ---
Nurse's Notes [facility] Name: Demario Johnston Jr Age: 81 yrs Sex: Male : 1940 Arrival Date: 04/15/2022 Time: 10:05 Bed 6 Private MD: Diagnosis: Fracture of mandible;Mandibular dislocation bilaterally;chin laceration;Fall on same level, unspecified Presentation: 04/15 10:10 Care prior to arrival: None. Mechanism of Injury: Fall from standing position. Trauma vg1 event details: Injury occurred in the [facility]. 10:10 Method Of Arrival: Ambulatory vg1 10:10 Chief complaint: Patient states: tripped while walking outside near house. states he tp1 fell forward hitting chin. CO sharp pain to the jaw and right side, rates pain 9/10. states he is unable to close jaw and pain increases when leaning head back against stretcher. denies LOC or use of blood thinners. 10:10 Ebola Screen: Patient negative for fever greater than or equal to 101.5 degrees tp1 Fahrenheit, and additional compatible Ebola Virus Disease symptoms Patient denies exposure to infectious person. Patient denies travel to an Ebola-affected area in the 21 days before illness onset. Initial Sepsis Screen: Does the patient meet any 2 criteria? No. Patient's initial sepsis screen is negative. Does the patient have a suspected source of infection? No. Patient's initial sepsis screen is negative. Risk Assessment: Do you want to hurt yourself or someone else? Patient reports no desire to harm self or others. Onset of symptoms was April 15, 2022. 10:10 Acuity: JADA 2 tp1 13:28 Coronavirus screen: Vaccine status: Patient reports receiving the 2nd dose of the covid tp1 vaccine. Triage Assessment: 10:10 General: Appears in no apparent distress. uncomfortable, to have blood on shirt . tp1 Behavior is calm, cooperative. Pain: Complains of pain in jaw, chin, and right side of ribs Pain radiates to bilateral sides of jaw Pain currently is 9 out of 10 on a pain scale. Quality of pain is described as sharp, Pain began 30 min ago. EENT: Nares are clear appears to have abrasion to right side of lower lip, appears swollen. Neuro: Level of Consciousness is awake, alert, obeys commands, Oriented to person, place, time, situation. Cardiovascular: Patient's skin is warm and dry. Respiratory: Airway is patent Respiratory effort is even, unlabored, Denies shortness of breath. GI: Abdomen is round non-distended, Patient currently denies denies ABD pain. : No signs and/or symptoms were reported regarding the genitourinary system. Derm: Skin is pink, warm \T\ dry. appears to have abrasion to bilateral knees, left pad of middle finger, right side of lower lip. appears to have laceration under chin. Musculoskeletal: Circulation, motion, and sensation intact. Injury Description: Abrasion sustained to bilateral knees, left middle finger, and right side of lower lip Laceration sustained to chin. Trauma Activation: Physician: ED Physician; Name: VILLALOBOS; Notified At: ; Arrived At: Physician: General Surgeon; Name: ; Notified At: ; Arrived At: Physician: Radiology; Name: ; Notified At: ; Arrived At: Physician: Respiratory; Name: ; Notified At: ; Arrived At: Physician: Lab; Name: ; Notified At: ; Arrived At: Historical: - Allergies: 10:45 Sulfa (Sulfonamide Antibiotics); tp1 - Home Meds: 10:45 metformin 1,000 mg Oral tab 1 tab 2 times per day [Active]; Glimepiride Oral [Active]; tp1 Ramipril Oral [Active]; - PMHx: 10:45 Diabetes - NIDDM; tp1 - Immunization history:: Client reports receiving the 2nd dose of the Covid vaccine. - Social history:: Smoking status: Patient denies any tobacco usage or history of. - Immunization history: Last tetanus immunization: > 10 years ago. Screenin:10 Abuse screen: Denies threats or abuse. Tuberculosis screening: No symptoms or risk vg1 factors identified. 10:10 Nutritional screening: No deficits noted. Fall Risk Fall in past 12 months (25 points). tp1 No secondary diagnosis (0 pts). IV access (20 points). Ambulatory Aid- None/Bed Rest/Nurse Assist (0 pts). Gait- Normal/Bed Rest/Wheelchair (0 pts) Mental Status- Oriented to own ability (0 pts). Primary Survey: 10:10 NO uncontrolled hemorrhage observed. vg1 10:10 A: The client is awake and alert. The airway is patent. The client is alert. vg1 Breathing/Chest: Spontaneous respiratory effort, equal unlabored respirations, breath sounds clear bilaterally, regular pattern, symmetrical chest rise and fall. Respiratory effort: spontaneous, unlabored, Breath sounds: clear, Respiratory pattern: regular, Chest inspection: symmetrical rise and fall of the chest. Circulation: No external hemorrhage present. Regular and strong central pulse, skin warm/dry/normal color. Hemorrhage: No external hemorrhage noted. Skin color: pink. Disability Client is alert. Exposure/Environment: All clothing and personal items were removed. Forensic evidence collection is not deemed to be indicated at this time. Items placed in patient belonging bag. There is no evidence of uncontrolled external bleeding. Obvious injury(ies) are noted at this time: appears to have abrasions to ELSA knees and a lacerations to chin. Secondary Survey: 10:10 HEENT: Face Other appears to have a laceration to chin, bleeding controlled. vg1 Gastrointestinal: No deficits noted. Abdomen is soft. : No signs and/or symptoms were reported regarding the genitourinary system. Musculoskeletal: Circulation, motion, and sensation intact. Assessment: 10:10 General: see triage notes . tp1 10:25 Reassessment: abrasions to ELSA and laceration to chin have been cleansed. vg1 10:58 Reassessment: escorted to CT via wheelchair by PIERIS [employer]. tp1 11:25 Reassessment: Patient appears in no apparent distress at this time. No changes from tp1 previously documented assessment. Patient and/or family updated on plan of care and expected duration. Pain level reassessed. Patient is alert, oriented x 3, equal unlabored respirations, skin warm/dry/pink. 12:28 Reassessment: report given to receiving nurse. tp1 12:28 Reassessment: Patient appears in no apparent distress at this time. No changes from tp1 previously documented assessment. Patient is alert, oriented x 3, equal unlabored respirations, skin warm/dry/pink. resting in bed. 13:20 Reassessment: Patient appears in no apparent distress at this time. No changes from tp1 previously documented assessment. Patient is alert, oriented x 3, equal unlabored respirations, skin warm/dry/pink. Continuing to CO 9/10 jaw pain, provider notified. Vital Signs: 10:29 BP 168 / 90; Pulse 100; Resp 16; Temp 97.7(TE); Pulse Ox 100% on R/A; Weight 84.37 kg; tp1 Height 6 ft. 2 in. (187.96 cm); 10:45 BP 147 / 84; Pulse 91; Resp 15; Pulse Ox 99% ; jl7 11:29 BP 141 / 74; Pulse 90; Resp 15; Pulse Ox 99% ; jl7 12:29 BP 153 / 74; Pulse 89; Resp 15; Pulse Ox 100% on R/A; tp1 13:26 BP 154 / 85; Pulse 88; Resp 15; Pulse Ox 100% on R/A; tp1 10:29 Body Mass Index 23.88 (84.37 kg, 187.96 cm) tp1 [place] Coma Score: 10:10 Eye Response: spontaneous(4). Verbal Response: oriented(5). Motor Response: obeys vg1 commands(6). Total: 15. 10:45 Eye Response: spontaneous(4). Verbal Response: oriented(5). Motor Response: obeys jl7 commands(6). Total: 15. 11:29 Eye Response: spontaneous(4). Verbal Response: oriented(5). Motor Response: obeys jl7 commands(6). Total: 15. Trauma Score (Adult): 10:10 Eye Response: spontaneous(1); Verbal Response: oriented(1); Motor Response: obeys vg1 commands(2); Systolic BP: > 89 mm Hg(4); Respiratory Rate: 10 to 29 per min(4); [place] Score: 15; Trauma Score: 12 ED Course: 10:05 Patient arrived in ED. as 10:06 Marin Villalobos DO is Attending Physician. ms3 10:10 Patient maintains SpO2 saturation greater than 95% on room air. vg1 10:10 Patient has correct armband on for positive identification. Bed in low position. Call vg1 light in reach. Side rails up X2. Adult w/ patient. 10:10 Arm band placed on right wrist. jl7 10:26 Inserted saline lock: 20 gauge in right antecubital area, using aseptic technique. tp1 Blood collected. 10:29 Caty Merlos RN is Primary Nurse. tp1 10:34 Triage completed. tp1 10:44 Warm blanket given. vg1 10:46 Pulse ox on. NIBP on. tp1 11:04 CT Head C Spine In Process Unspecified. EDMS 11:05 CT Facial Bones W/O Con In Process Unspecified. EDMS 11:23 XRAY Chest (1 view) In Process Unspecified. EDMS 11:37 initiated a transfer with Crystal Mcelroy Rn from the [facility]. 11:50 administrative approval given by Crystal Hoffman Rn/ patient has been accepted to [facility] ER/ Dr. Gwen Ríos has accepted the patient in transfer without patient consultation with Dr. Villalobos/ report to be called to [phone]. 12:31 COVID swab sent to lab. tp1 13:29 Patient transferred, IV remains in place. tp1 13:29 No provider procedures requiring assistance completed. tp1 Administered Medications: 03:21 Drug: morphine 4 mg Route: IVP; Infused Over: 4 mins; Site: right antecubital; tp1 13:25 Follow up: Response: Medication administered at discharge. tp1 13:25 Drug: Tetanus Immune Globulin 250 units Route: IM; Site: right deltoid; tp1 13:25 Follow up: Response: Medication administered at discharge. tp1 Medication: 13:27 Vaccine Information Statement (VIS) provided today. Questions and/or concerns tp1 addressed. VIS edition date: March 03, 2021. Outcome: 11:37 ER care complete, transfer ordered by ms3 13:29 Transferred by ground EMS to [facility], Transfer form completed. tp1 13:29 Condition: good 13:29 Discharge instructions given to patient, family, Instructed on the need for transfer, Demonstrated understanding of instructions. 13:30 Patient left the ED. tp1 Signatures: Dispatcher [employer] Va Forte Jahala RN RN jl7 Taylor Jackson Victoria RN RN vg1 Marin Villalobos DO DO ms3 Caty Merlos RN RN tp1 Corrections: (The following items were deleted from the chart) 10:45 10:29 BP 168 / 90; Pulse 100bpm; Resp 16bpm; Pulse Ox 100% RA; Temp 96.7F Axillary; tp1 tp1
[2022-04-15] MEDS ORDERED: LIDOCAINE 2% MPF 5 ML VIAL ONE (12:37)
[2022-04-15 12:48] LABS: SARS-CoV-2 Antigen Rapid Res Negative (Negative)
[2022-04-15] MEDS ORDERED: MORPHINE 4 MG/ML SYR ONE (13:28)
[2022-04-15] MEDS ORDERED: TETANUS & DIPHTHERIA TOX,ADULT 0.5 ML VIAL ONE (13:28)
[2022-04-16 22:05] VITALS: TEMP 97.7
[2022-04-16 22:12] VITALS: O2SAT 100
[2022-04-16 22:14] VITALS: BP 154/85
== END 2022-04-15 13:30 | disposition short-term general hospital (02) ==
LOC: ER 10:03
PROC: 0JQ10ZZ Repair Face Subcutaneous Tissue and Fascia, Open Approach (ICD-10-PCS; principal; 2022-04-15)
DX: S02.609A Fracture of mandible, unspecified, initial encounter for closed fracture (principal); S01.81XA Laceration without foreign body of other part of head, initial encounter; W18.30XA Fall on same level, unspecified, initial encounter; E11.9 Type 2 diabetes mellitus without complications; Z20.822 Contact with and (suspected) exposure to COVID-19; Z23 Encounter for immunization
CPT/HCPCS: 85025; 80048; 36415; 86900; 86850; 86901; 70450; 72125; 70486; 76377; 71045; 90471; 90714; 96374; 99285; 87811; 12011; J2001

== ENCOUNTER 2024-06-01 08:36 | Emergency (ER) | payer OTHER ==
--- OUTSIDE RECORDS SUMMARY | 2024-06-01 08:38 | XMS REPORT | Continuity of Care Document ---
Author Name Unknown Address [address] [facility] [place] [address] [facility] thconnect Address [address] [facility] [address] [place] [address] Care Team Providers Care Stoker Erector And Servicer Name Role Phone Unavailable Unavailable Unavailable Payers Payer Name Policy Type Policy Number Effective Date Expirati on Date Source [employer] MED[employer]ARE PPO [id number] 1 00:00:00 Encounters Start Date/Time End Date/Time Encounter Type Admission Type Attending Clinicians Care Facility Care Department Encounter ID Source 2022-05-03 09:36:43 Outpatient [facility] [id number] [facility] 2022-04-18 09:18:32 Outpatient [facility] [id number] [facility]
--- NOTE | 2024-06-01 10:08 | RAD REPORT ---
EXAMINATION: CT Abdomen Pelvis Wo Contrast CLINICAL INDICATION: Male, 83 years old. fall, lumbar back pain, nausea TECHNIQUE: CT abdomen and pelvis was performed, without IV contrast, as per department protocol. Axia l, sagittal and coronal reconstructions were obtained. One or more of the following dose reduction techniques were used: Automated exposure control, adjustment of the mA and kV according to the patien t size, and iterative reconstruction. Unless otherwise specified, incidental findings do not require dedicated imaging follow-up. COMPARISON: 09/13/2021 FINDINGS: The lack of intravenous contrast limits the sensitivity of this exam for evaluation of solid visceral organs, vascular structures, and retroperitoneum. LOWER CHEST: The visualized lung bases are clear. LIVER: Normal in size and contour. No focal lesion. BILIARY SYSTEM: No suspicious abnormalities. SPLEEN: Normal size. No focal lesion. PANCREAS: No mass, ductal dilation, or carol-pancreatic fluid. ADRENALS: Normal; no mass. KIDNEYS AND URETERS: Normal size and contour. No hydronephrosis. Stable exophytic left upper pole 3 c m cyst. URINARY BLADDER: 2 radiodensities near the prostatic median lobe, largest measuring 8 mm, stable, cou ld relate to prostatic calcifications or bladder calculi. GASTROINTESTINAL TRACT: Small sliding hiatal hernia. No evidence of bowel obstruction, significant fr ee fluid, free air or abscess. APPENDIX: Appendix not visualized, but no inflammatory changes in region of appendix. LYMPH NODES: No lymphadenopathy. MUSCULOSKELETAL: No acute or suspicious osseous abnormality. ADDITIONAL FINDINGS: Prostatomegaly with calcifications. Small posterior mediastinal ovoid nodules, l argest measuring 1.2 cm, stable, and nonspecific. IMPRESSION: No acute or other concerning abnormalities in the abdomen or pelvis, with evaluation limited by lack of IV contrast. Stable radiodensities near the bladder outlet largest measuring 8 mm, could relate to prostatic calci fications or bladder calculi.
[2024-06-01 10:10] LABS: Specific Gravity 1.012 (1.005-1.030); Sqamous Epithelial <5 /HPF (None Seen); Urine Bacteria None Seen /HPF (<20); Urine Bilirubin NEGATIVE (Negative); Urine Blood Negative (Negative); Urine Clarity Clear (Clear); Urine Color Light-Yellow (Yellow); Urine Culture Reflex Order NOT NEEDED; Urine Glucose NEGATIVE (Negative); Urine Ketones NEGATIVE (Negative); Urine Microscopic Reflex YN ORDER UMIC; Urine Nitrite NEGATIVE (Negative); Urine Protein NEGATIVE (Negative); Urine RBC <5 /HPF (None Seen); Urine Urobilinogen Normal (Normal); Urine WBC <5 /HPF (<5)
--- NOTE | 2024-06-01 10:19 | ER ---
Nurse's Notes [facility] Name: Demario Johnston Jr Age: 83 yrs Sex: Male : 1940 Arrival Date: 06/01/2024 Time: 08:36 Bed 7 Private MD: Diagnosis: Contusion of lower back and pelvis Presentation: 06/01 08:50 Chief complaint: Patient states: " I was changing my refrigerator's water ss filter and I was about half way up when I fell onto my back. I didn't have any pain initially, but it's getting worse as the days progress." Pt reports he took two Ibuprofen tablets this morning which have helped with his pain. Coronavirus screen: Client denies travel out of the [place] in the last 14 days. Ebola Screen: Patient denies exposure to infectious person. Patient denies travel to an Ebola-affected area in the 21 days before illness onset. Initial Sepsis Screen: Does the patient meet any 2 criteria? No. Patient's initial sepsis screen is negative. Does the patient have a suspected source of infection? No. Patient's initial sepsis screen is negative. Risk Assessment: Do you want to hurt yourself or someone else? Patient reports no desire to harm self or others. Onset of symptoms was May 28, 2024. 08:50 Method Of Arrival: Ambulatory ss 08:50 Acuity: JADA 3 ss Historical: - Allergies: 08:54 Sulfa (Sulfonamide Antibiotics); ss - PMHx: 08:54 Diabetes - NIDDM; ss - Immunization history:: Client reports having NOT received the Covid vaccine. - Infectious Disease History:: Denies. - Social history:: Smoking status: Patient denies any tobacco usage or history of. - Family history:: not pertinent. - Hospitalizations: : No recent hospitalization is reported. Screenin:08 [facility] ED Fall Risk Assessment (Adult) History of falling in the last 3 months, ko1 including since admission No falls in past 3 months (0 pts) Confusion or Disorientation No (0 pts) Intoxicated or Sedated No (0 pts) Impaired Gait No (0 pts) Mobility Assist Device Used No (0 pt) Altered Elimination No (0 pt) Score/Fall Risk Level 0 - 2 = Low Risk Oriented to surroundings, Maintained a safe environment, Educated pt \\T\\ family on fall prevention, incl call for assistance when getting out of bed, Assessed \\T\\ reinforced patient's understanding of fall precautions, Hourly rounding (assess needs \\T\\ fall precautionary measures) done. Abuse screen: Denies threats or abuse. Denies injuries from another. Nutritional screening: No deficits noted. Tuberculosis screening: No symptoms or risk factors identified. Assessment: 09:08 General: Appears in no apparent distress. Behavior is calm, cooperative, appropriate ko1 for age. Pain: Complains of pain in back. Neuro: No deficits noted. Cardiovascular: No deficits noted. Respiratory: No deficits noted. GI: No deficits noted. : No deficits noted. EENT: No deficits noted. Derm: No deficits noted. Musculoskeletal: Reports pain in back. Vital Signs: 08:50 BP 157 / 98; Pulse 97; Resp 16; Temp 97.6(TE); Pulse Ox 100% on R/A; Weight 83.91 kg; ss Height 6 ft. 2 in. ; Pain 3/10; 09:40 BP 140 / 83; Pulse 87; Resp 15; Pulse Ox 98% ; ko1 10:28 BP 153 / 88; Pulse 86; Resp 16; Pulse Ox 99% ; ko1 08:50 Body Mass Index 23.75 (83.91 kg, 187.96 cm) ss 08:50 Pain Scale: Adult ss ED Course: 08:40 Patient arrived in ED. mg5 08:40 Donny Albarran MD is Attending Physician. rn 08:50 Elisabeth Sy, ANNAMARIE is Primary Nurse. ko1 08:54 Triage completed. ss 08:54 Arm band placed on right wrist. ss 09:08 Patient has correct armband on for positive identification. Allergy band placed. Bed in ko1 low position. Call light in reach. Side rails up X 1. Provided Education on: tests, labs. Pulse ox on. NIBP on. Door closed. Noise minimized. Lights dimmed. Warm blanket given. Pillow given. 09:08 No provider procedures requiring assistance completed. Patient did not have IV access ko1 during this emergency room visit. 09:11 CT Abd/Pelvis - Without Contrast In Process Unspecified. EDMS 09:55 Urinalysis w/ reflexes Sent. ko1 09:55 Urine collected: clean catch specimen, clear. ko1 Administered Medications: No medications were administered Medication: 09:40 VIS not applicable for this client. ko1 Outcome: 10:19 Discharge ordered by . rn 10:29 Discharged to home ambulatory, with family, ko1 10:29 Condition: stable 10:29 Discharge instructions given to patient, family, Instructed on discharge instructions, follow up and referral plans. medication usage, Demonstrated understanding of instructions, follow-up care, 10:36 Patient left the ED. ko1 Signatures: Dispatcher [employer] EDMS Donny Albarran MD MD rn Blanchard, Shelby, RN RN ss Oliver, Kathy, RN RN ko1 [place] mg5
--- NOTE | 2024-06-01 10:19 | EDPHYS ---
Physician Documentation [facility] Name: Demario Johnston Jr Age: 83 yrs Sex: Male : 1940 Arrival Date: 06/01/2024 Time: 08:36 Bed 7 Private MD: ED Physician Donny Albarran HPI: 06/01 09:01 This 83 yrs old Male presents to ER via Ambulatory with complaints of Fall Injury, Back rn Pain. 09:01 Details of fall: The patient fell from seated position. Onset: The symptoms/episode rn began/occurred 4 day(s) ago. Associated injuries: The patient sustained injury to the low back. Severity of symptoms: At their worst the symptoms were mild, in the emergency department the symptoms are unchanged. The patient has not experienced similar symptoms in the past. Patient reports changing out an air filter, was bent down on the ground, fell backward and struck back on flat floor. Reports lower back pain and nausea. No fever. Orient well before this injury. No bowel or bladder complaints. Does report his sugar this morning was 146, slightly higher than it normally is. Denies fever or chills. No chest pain or shortness of breath. No abdominal pain.. Historical: - Allergies: 08:54 Sulfa (Sulfonamide Antibiotics); ss - PMHx: 08:54 Diabetes - NIDDM; ss - Immunization history:: Client reports having NOT received the Covid vaccine. - Infectious Disease History:: Denies. - Social history:: Smoking status: Patient denies any tobacco usage or history of. - Family history:: not pertinent. - Hospitalizations: : No recent hospitalization is reported. ROS: 09:01 Constitutional: Negative for fever, chills, and weight loss, Neck: Negative for injury, rn pain, and swelling, Cardiovascular: Negative for chest pain, palpitations, and edema, Respiratory: Negative for shortness of breath, cough, wheezing, and pleuritic chest pain, Abdomen/GI: Negative for abdominal pain, nausea, vomiting, diarrhea, and constipation, Back: Positive for lower back pain : Negative for injury, bleeding, discharge, and swelling, MS/Extremity: Negative for injury and deformity, Skin: Negative for injury, rash, and discoloration, Neuro: Negative for headache, weakness, numbness, tingling, and seizure, Exam: 09:01 Constitutional: This is a well developed, well nourished patient who is awake, alert, rn and in no acute distress. Ambulatory to room without difficulty or assistance Head/Face: Normocephalic, atraumatic. Neck: No midline cervical tenderness Chest/axilla: No rib tenderness or crepitus Cardiovascular: Regular rate and rhythm. No pulse deficits. Respiratory: No increased work of breathing, no retractions or nasal flaring. Abdomen/GI: Soft, nontender, no masses Back: Mild lumbar and paralumbar tenderness. No ecchymosis or swelling MS/ Extremity: Pulses equal, no cyanosis. Neurovascular intact. Full, normal range of motion. Equal circumference. Neuro: Awake and alert, GCS 15. Normal gait. Vital Signs: 08:50 BP 157 / 98; Pulse 97; Resp 16; Temp 97.6(TE); Pulse Ox 100% on R/A; Weight 83.91 kg; ss Height 6 ft. 2 in. ; Pain 3/10; 09:40 BP 140 / 83; Pulse 87; Resp 15; Pulse Ox 98% ; ko1 10:28 BP 153 / 88; Pulse 86; Resp 16; Pulse Ox 99% ; ko1 08:50 Body Mass Index 23.75 (83.91 kg, 187.96 cm) ss 08:50 Pain Scale: Adult ss MDM: 08:40 Medical Screening Exam initiated rn 10:18 Differential diagnosis: contusion, fracture, sprain, strain. Data reviewed: vital rn signs, nurses notes, lab test result(s), radiologic studies, CT scan, and as a result, I will discharge patient. Counseling: I had a detailed discussion with the patient and/or guardian regarding the historical points, exam findings, and any diagnostic results supporting the discharge/admit diagnosis, lab results, radiology results, the need for outpatient follow up, to return to the emergency department if symptoms worsen or persist or if there are any questions or concerns that arise at home. Special discussion: I discussed with the patient/guardian in detail that at this point there is no indication for admission to the hospital. It is understood, however, that if the symptoms persist or worsen the patient needs to return immediately for re-evaluation. ED course: I have personally reviewed all of the results, including but not limited to blood tests and imaging deemed necessary to safely discharge this patient at this time. All results given to and printed out for patient. I personally went over all the results with the patient and answered all questions. Patient will follow-up with PCP and or specialist as discussed. Return precautions given and understood.. 06/01 08:59 Order name: Urinalysis w/ reflexes; Complete Time: 10:11 rn 06/01 08:59 Order name: CT Abd/Pelvis - Without Contrast; Complete Time: 10:11 rn Administered Medications: No medications were administered Disposition Summary: 06/01/24 10:19 Discharge Ordered Notes: Location: Home rn Problem: new rn Symptoms: have improved rn Condition: Stable rn Diagnosis - Contusion of lower back and pelvis rn Followup: rn - With: Private Physician - When: As needed - Reason: Recheck today's complaints, Re-evaluation by your physician Discharge Instructions: - Discharge Summary Sheet rn - Contusion rn Forms: - Medication Reconciliation Form rn - Antibiotic internet marketing assistant - Prescription Opioid Use rn - Patient Portal Instructions rn - Leadership Thank You Letter rn Signatures: Dispatcher [employer] Donny Duke MD MD rn Blanchard, Shelby, RN RN ss
[2024-06-01 10:41] VITALS: TEMP 97.6
[2024-06-01 10:44] VITALS: BP 153/88; O2SAT 99
== END 2024-06-01 10:36 | disposition home or self-care (01) ==
LOC: ER 08:36
DX: S30.0XXA Contusion of lower back and pelvis, initial encounter (principal); E11.9 Type 2 diabetes mellitus without complications; Z28.310 Unvaccinated for COVID-19
CPT/HCPCS: 74176; 81001; 99283